=== PATIENT | female | born 1960 | race Caucasian/White ===

== ENCOUNTER → 2017-07-21 | Outpatient (CLI) | payer BC ==
--- NOTE | 2017-07-21 19:01 | XR ---
EXAMINATION TYPE: XR chest 2V DATE OF EXAM: 07/21/2017 COMPARISON: 12/04/2013 HISTORY: Cough TECHNIQUE: Frontal and lateral views of the chest are obtained. FINDINGS: There is no heart failure nor confluent pneumonic infiltrate. Costophrenic angles are trevor r. There are no hilar masses. Bony thorax is intact. IMPRESSION: No active cardiopulmonary disease. No change.
== END | disposition home or self-care (01) ==
LOC: RADXRMAIN 17:34
PROVIDERS: ATTEND Family Medicine
DX: R05 Cough (principal)
CPT/HCPCS: 71020

== ENCOUNTER 2017-12-24 10:21 | Day surgery (SDC) | payer BC ==
[2017-12-22 11:09] VITALS: BMI 31.0
[~2017-12-24 10:21] MED LIST: LACTATED RINGERS 1,000 ML IV SCH; LIDOCAINE 1% 20 ML VIAL (10MG/ML) FOR IV START INTRADERMA PRN
[2017-12-24 11:38] VITALS: TEMP 97.7
[2017-12-24] MEDS ORDERED: GLYCOPYRROLATE 0.2 MG/ML 2 ML VIAL ONE (12:05)
[2017-12-24] MEDS ORDERED: PROPOFOL 10 MG/ML 20 ML VIAL IV ONE (12:05)
--- NOTE | 2017-12-24 12:27 | P.PCN ---
Date of Procedure: 12/24/17 Procedure(s) Performed: BRIEF HISTORY: Patient is a 57-year-old pleasant white female, scheduled for an elective colonoscopy as a part of evaluation of prior history of colon polyps. Last upper endoscopy was 5 years ago. PROCEDURE PERFORMED: Colonoscopy. PREOPERATIVE DIAGNOSIS: History of colon polyps. IV sedation per Anesthesia. PROCEDURE: After informed consent was obtained, the patient, was brought into the endoscopy unit. IV sedation was administered by Anesthesia under continuous monitoring. Digital rectal examination was normal. Initially the Olympus CF- 160 flexible video colonoscope was then inserted in the rectum, gradually advanced into the cecum without any difficulty. Careful examination was performed as the scope was gradually being withdrawn. Ileocecal valve and the appendiceal orifice were visualized and appeared normal. Prep was excellent. Mucosa of the cecum, ascending colon, transverse colon, descending colon, sigmoid colon, and rectum appeared normal. Scattered sigmoid diverticulosis. Retroflexion was performed in the rectum and no lesions were seen. The patient tolerated the procedure well. IMPRESSION: Normal-appearing colon from rectum to cecum with no evidence of colorectal neoplasia . Scattered sigmoid diverticulosis RECOMMENDATIONS: Findings of this examination were discussed with the patient as well as a family. She was advised to have a repeat surveillance colonoscopy in 5 years because of the prior history of colon polyps.
[2017-12-24 12:33] VITALS: RESP 18
[2017-12-24 13:04] VITALS: BP 145/89; PULSE 65
== END 2017-12-24 13:11 | disposition home or self-care (01) ==
LOC: ORWHC2ENDO 10:21
PROVIDERS: ATTEND Internal Medicine Gastroenterology
DX: Z12.11 Encounter for screening for malignant neoplasm of colon (principal); K57.30 Diverticulosis of large intestine without perforation or abscess without bleeding; Z86.010 Personal history of colon polyps; I10 Essential (primary) hypertension; I48.91 Unspecified atrial fibrillation; E07.9 Disorder of thyroid, unspecified; F32.9 Major depressive disorder, single episode, unspecified; Z79.899 Other long term (current) drug therapy; Z79.890 Hormone replacement therapy
CPT/HCPCS: J2704; G0105; 45378

== ENCOUNTER → 2018-07-06 | Outpatient (CLI) | payer BC ==
--- NOTE | 2018-07-06 11:43 | FL ---
Barium swallow HISTORY: Dysphagia 88 intraoperative images, 1 minute 46 seconds fluoroscopy time allograft patient was given high densi ty barium to drink. The swallowing mechanism is normal. There is no obstruction to flow, no intrinsic esophageal abnormal ity. Mild degenerative disc changes noted in the cervical spine. No evident hiatal hernia. Tertiary e sophageal contractions were noted incidentally. Some poor clearance of the barium from the thoracic e sophagus is noted. No gastroesophageal reflux. IMPRESSION: Some tertiary esophageal contractions were noted as described. Some mild degenerative dis c changes in the cervical spine show minimal posterior impression on the cervical esophagus.
== END | disposition home or self-care (01) ==
LOC: RADFLWHC 09:15
PROVIDERS: ATTEND Otolaryngology
DX: K22.8 Other specified diseases of esophagus (principal)
CPT/HCPCS: 74220

== ENCOUNTER 2018-09-16 09:29 | Day surgery (SDC) | payer BC, OTHER ==
[2018-09-14 09:21] VITALS: BMI 31.0
[~2018-09-16 09:29] MED LIST changes: -LIDOCAINE 1% 20 ML VIAL (10MG/ML) FOR IV START INTRADERMA PRN
[2018-09-16] MEDS ORDERED: LIDOCAINE 1% 20 ML VIAL (10MG/ML) FOR IV START INTRADERMA ONE (10:18)
[2018-09-16] MEDS ORDERED: LACTATED RINGERS 1,000 ML IV ONE (10:18)
[2018-09-16 10:22] VITALS: RESP 18; TEMP 98.3
[2018-09-16] MEDS ORDERED: LIDOCAINE 1% INJ 10MG/ML (20 ML MDV) ONE (10:45)
[2018-09-16] MEDS ORDERED: PROPOFOL 10 MG/ML 20 ML VIAL IV ONE (10:45)
--- NOTE | 2018-09-16 11:05 | P.PCN ---
Date of Procedure: 09/16/18 Procedure(s) Performed: BRIEF HISTORY: Patient is a 58-year-old, pleasant, female, scheduled for an upper endoscopy as a part of value should of globus pharyngeus for the last 3 months duration. She reports no dysphagia or odynophagia. She denies any heartburn, abdominal pain or nausea vomiting. PROCEDURE PERFORMED: Esophagogastroduodenoscopy with biopsy. PREOPERATIVE DIAGNOSIS: Globus pharyngeal. IV sedation per anesthesia. PROCEDURE: After informed consent was obtained, the patient was brought into the endoscopy unit. IV sedation was administered by Anesthesia under continuous monitoring. Initially the Olympus GIF-140 video endoscope was inserted into the mouth. Esophagus intubated without any difficulty. It was gradually advanced into the stomach and duodenum and carefully examined. The bulb and the second part of the duodenum appeared normal. The scope at this time was withdrawn to the stomach, adequately insufflated with air, and upon careful examination, mucosa of the antrum, had mild gastritis and biopsies were done from this area. The body, cardia and the fundus appeared normal. The scope was then withdrawn into the esophagus. The GE junction was located at 39 cm from the incisors. The esophagus appeared normal. There were no erosions or ulcerations seen. Proximal cervical esophagus was carefully examined and appeared entirely normal. Biopsies were done from the distal esophagus and the patient tolerated the procedure well. IMPRESSION: 1. Antral gastritis. 2. Normal-appearing esophagus with no evidence of esophagitis or esophageal stricture.. RECOMMENDATIONS: The findings of this examination were discussed with the patient as well as a family. She was advised to follow with the biopsy results..
[2018-09-16 11:24] VITALS: BP 157/80; PULSE 58
== END 2018-09-16 11:38 | disposition home or self-care (01) ==
LOC: ORWHC2ENDO 09:29
PROVIDERS: ATTEND Internal Medicine Gastroenterology
DX: K29.50 Unspecified chronic gastritis without bleeding (principal); B96.81 Helicobacter pylori [H. pylori] as the cause of diseases classified elsewhere; F45.8 Other somatoform disorders; I48.91 Unspecified atrial fibrillation; E07.9 Disorder of thyroid, unspecified; F32.9 Major depressive disorder, single episode, unspecified; Z79.890 Hormone replacement therapy; Z79.899 Other long term (current) drug therapy
CPT/HCPCS: 88305; 88342; 43239; J2001; J2704

== ENCOUNTER 2019-02-08 12:06 | Emergency (ER) | payer OTHER ==
[2019-02-08 12:16] VITALS: TEMP 98.3
[2019-02-08 12:56] LABS: Basophils # (A) 0.1 k/uL (0-0.2); Basophils % (A) 1 %; Eosinophils # (A) 0.3 k/uL (0-0.7); Eosinophils % (A) 4 %; HCT 45.9 % (34.0-46.0); HGB 14.7 gm/dL (11.4-16.0); Lymphocytes # (A) 2.3 k/uL (1.0-4.8); Lymphocytes % (A) 34 %; MCH 27.8 pg (25.0-35.0); MCHC 31.9 g/dL (31.0-37.0); MCV 87.1 fL (80.0-100.0); Mean Platelet Volume 6.6; Monocytes # (A) 0.4 k/uL (0-1.0); Monocytes % (A) 5 %; Neutrophils # (A) 3.7 k/uL (1.3-7.7); Neutrophils % (A) 54 %; Platelet Count 315 k/uL (150-450); RBC 5.27 m/uL (3.80-5.40); RDW 13.9 % (11.5-15.5); WBC 6.9 k/uL (3.8-10.6)
--- NOTE | 2019-02-08 12:59 | XR ---
EXAMINATION TYPE: XR chest 2V DATE OF EXAM: 02/08/2019 COMPARISON: Chest x-rays from 2017 and 2014. HISTORY: Atrial fibrillation. TECHNIQUE: Frontal and lateral views of the chest are obtained. FINDINGS: There is chronic parenchymal change without suspicious focal air space opacity, pleural ef fusion, or pneumothorax seen. Focal scarring at right anterior first rib articulation is stable from 2014. The cardiac silhouette size remains within normal limits. Overlying EKG leads are now present. The osseous structures are intact. IMPRESSION: No acute cardiopulmonary process. No significant change from prior study.
[2019-02-08 13:01] LABS: Partial Thromboplastin Time 25.5 sec (22.0-30.0); Prothrombin Time 10.8 sec (9.0-12.0)
[2019-02-08] MEDS ORDERED: METOPROLOL TARTRATE 5 MG/5 ML VIAL IVP STA ×2 (13:03→14:17)
--- NOTE | 2019-02-08 13:06 | ED ---
Arrhythmia/Palpitations HPI - General Chief Complaint: Arrhythmia/Palpitations Stated Complaint: A-Fib Time Seen by Provider: 02/08/19 12:22 Source: patient, RN notes reviewed, old records reviewed Mode of arrival: wheelchair Limitations: no limitations - History of Present Illness Initial Comments: 58-year-old female history of atrial fibrillation presents with an episode of palpitations which began this morning. She denies pain associated with her palpitations. She did have an episode on Friday which was associated with some bilateral shoulder pain. She took a flecainide at that time which she is she was prescribed when necessary and this resolved her symptoms on Friday. She did not take any medication prior to arrival today. She is currently on metoprolol 25 mg daily and losartan. No anticoagulation. She reports some mild dyspnea associated with her palpitations. No cough or fever. No vomiting or diarrhea. - Related Data Home Medications Medication Instructions Recorded Confirmed Cholecalciferol [Vitamin D3] 1,000 unit PO W/SUPPER 12/22/17 02/08/19 Levothyroxine Sodium [Synthroid] 50 mcg PO DAILY 12/22/17 02/08/19 Metoprolol Succinate [Toprol XL] 25 mg PO W/SUPPER 12/22/17 02/08/19 Sertraline [Zoloft] 50 mg PO W/SUPPER 12/22/17 02/08/19 Flecainide Acetate 100 mg PO W/SUPPER PRN 02/08/19 02/08/19 Losartan Potassium 100 mg PO W/SUPPER 02/08/19 02/08/19 Previous Rx's Medication Instructions Recorded Metoprolol Tartrate [Lopressor] 25 mg PO BID #60 tablet 02/08/19 Allergies Allergy/AdvReac Type Severity Reaction Status Date / Time lorazepam [From Ativan] AdvReac Severe DOES NOT Verified 02/08/19 12:39 REMEMBER ANYTHING FOR A COUPLE HOURS. Review of Systems ROS Statement: Those systems with pertinent positive or pertinent negative responses have been documented in the HPI. ROS Other: All systems not noted in ROS Statement are negative. Past Medical History Past Medical History: Atrial Fibrillation, Cancer, Hypertension, Osteoarthritis (OA), Thyroid Disorder Additional Past Medical History / Comment(s): MIGRAINES, DDD , HX OF BREAST CANCER (2000-SURGERY & TAMOXIFEN)., STATES FRACTURE OF T-11., THYROID NODULE., STRESS INCONTINENCE., STATES SHE FEELS LIKE SHE HAS SOMETHING IN HER THROAT. History of Any Multi-Drug Resistant Organisms: None Reported Past Surgical History: Breast Surgery, Section Additional Past Surgical History / Comment(s): LUMPECTOMY X2, RIGHT BREAST DUCT REMOVED, GANGLION CYST., X2 Past Anesthesia/Blood Transfusion Reactions: No Reported Reaction Past Psychological History: Depression Smoking Status: Former smoker Past Alcohol Use History: None Reported Past Drug Use History: None Reported, Marijuana - Past Family History Mother Family Medical History: Cancer Additional Family Medical History / Comment(s): BREAST CA Father Additional Family Medical History / Comment(s): POLYCYTHEMIA Brother(s) Family Medical History: Cancer Additional Family Medical History / Comment(s): POLYP CANCER Sister(s) Family Medical History: Cancer Additional Family Medical History / Comment(s): 2 SISTERS= UTERINE CANCER General Exam Limitations: no limitations General appearance: alert, in no apparent distress Head exam: Present: atraumatic, normocephalic Eye exam: Present: normal appearance, PERRL ENT exam: Present: normal exam Neck exam: Present: normal inspection. Absent: tenderness, meningismus Respiratory exam: Present: normal lung sounds bilaterally. Absent: respiratory distress Cardiovascular Exam: Present: tachycardia, irregular rhythm GI/Abdominal exam: Present: soft. Absent: distended, tenderness, guarding Extremities exam: Present: normal inspection, normal capillary refill. Absent: pedal edema Neurological exam: Present: alert, oriented X3, CN II-XII intact. Absent: motor sensory deficit Psychiatric exam: Present: normal affect, normal mood Skin exam: Present: warm, dry, intact. Absent: cyanosis, diaphoretic Course Vital Signs 02/08/19 02/08/19 02/08/19 12:13 12:56 13:39 Temperature 98.3 F Pulse Rate 78 100 66 Respiratory 18 18 18 Rate Blood Pressure 144/86 141/94 135/66 O2 Sat by Pulse 99 98 95 Oximetry 02/08/19 14:24 Temperature Pulse Rate 101 H Respiratory 18 Rate Blood Pressure 145/102 O2 Sat by Pulse 98 Oximetry EKG Findings - EKG Comments: EKG Findings:: EK, atrial fibrillation with PVC, rate of 85, QRS duration 84, QTC 435, no ST segment elevation. EKG 1325, sinus bradycardia, rate 57, OK interval 190, QRS duration 82, QTC 399, no ST segment elevation. EK, normal sinus rhythm, rate 61, OK interval 182, QRS duration 84, QTC 418. Medical Decision Making - Medical Decision Making 58-year-old female with known history of atrial fibrillation presenting with palpitations. Patient denies any chest pain. She had a pain between her shoulder blades several days ago this has resolved. She has no known history of coronary artery disease. She follows with cardiology on a regular basis. She is currently on metoprolol, losartan, and flecainide as needed. She took her metoprolol today but did not take flecainide prior to arrival. Initial EKG is atrial fibrillation which is rate controlled. She does convert on her own to sinus rhythm and then converts again to atrial fibrillation with a rate around 100. She is given 2.5 mg of metoprolol and returns to normal sinus rhythm. She is asymptomatic. She has a normal CBC, normal CMP, normal electrolytes, and negative troponin. I did discuss possibility of observation for telemetry and cardiology consultation, she prefers outpatient follow-up. She will monitor both blood pressure and heart rate at home. She will return with worsening or changing symptoms. I did initiate metoprolol 25 mg twice daily as opposed to once daily. Patient will call her thermal molder's and follow-up as an o utpatient. - Lab Data Result diagrams: 02/08/19 12:37 02/08/19 12:37 Lab Results 02/08/19 02/08/19 02/08/19 Range/Units 12:37 12:37 12:37 WBC 6.9 (3.8-10.6) k/uL RBC 5.27 (3.80-5.40) m/uL Hgb 14.7 (11.4-16.0) gm/dL Hct 45.9 (34.0-46.0) % MCV 87.1 (80.0-100.0) fL MCH 27.8 (25.0-35.0) pg MCHC 31.9 (31.0-37.0) g/dL RDW 13.9 (11.5-15.5) % Plt Count 315 (150-450) k/uL Neutrophils % 54 % Lymphocytes % 34 % Monocytes % 5 % Eosinophils % 4 % Basophils % 1 % Neutrophils # 3.7 (1.3-7.7) k/uL Lymphocytes # 2.3 (1.0-4.8) k/uL Monocytes # 0.4 (0-1.0) k/uL Eosinophils # 0.3 (0-0.7) k/uL Basophils # 0.1 (0-0.2) k/uL PT 10.8 (9.0-12.0) sec INR 1.0 (<1.2) APTT 25.5 (22.0-30.0) sec Sodium 145 (137-145) mmol/L Potassium 3.6 (3.5-5.1) mmol/L Chloride 108 H (98-107) mmol/L Carbon Dioxide 28 (22-30) mmol/L Anion Gap 9 mmol/L BUN 14 (7-17) mg/dL Creatinine 0.86 (0.52-1.04) mg/dL Est GFR (CKD-EPI)AfAm 87 (>60 ml/min/1.73 sqM) Est GFR (CKD-EPI)NonAf 75 (>60 ml/min/1.73 sqM) Glucose 74 (74-99) mg/dL Calcium 10.0 (8.4-10.2) mg/dL Magnesium 1.9 (1.6-2.3) mg/dL Total Bilirubin 0.4 (0.2-1.3) mg/dL AST 18 (14-36) U/L ALT 10 (9-52) U/L Alkaline Phosphatase 66 (38-126) U/L Troponin I (0.000-0.034) ng/mL Total Protein 7.7 (6.3-8.2) g/dL Albumin 4.7 (3.5-5.0) g/dL 02/08/19 Range/Units 12:37 WBC (3.8-10.6) k/uL RBC (3.80-5.40) m/uL Hgb (11.4-16.0) gm/dL Hct (34.0-46.0) % MCV (80.0-100.0) fL MCH (25.0-35.0) pg MCHC (31.0-37.0) g/dL RDW (11.5-15.5) % Plt Count (150-450) k/uL Neutrophils % % Lymphocytes % % Monocytes % % Eosinophils % % Basophils % % Neutrophils # (1.3-7.7) k/uL Lymphocytes # (1.0-4.8) k/uL Monocytes # (0-1.0) k/uL Eosinophils # (0-0.7) k/uL Basophils # (0-0.2) k/uL PT (9.0-12.0) sec INR (<1.2) APTT (22.0-30.0) sec Sodium (137-145) mmol/L Potassium (3.5-5.1) mmol/L Chloride (98-107) mmol/L Carbon Dioxide (22-30) mmol/L Anion Gap mmol/L BUN (7-17) mg/dL Creatinine (0.52-1.04) mg/dL Est GFR (CKD-EPI)AfAm (>60 ml/min/1.73 sqM) Est GFR (CKD-EPI)NonAf (>60 ml/min/1.73 sqM) Glucose (74-99) mg/dL Calcium (8.4-10.2) mg/dL Magnesium (1.6-2.3) mg/dL Total Bilirubin (0.2-1.3) mg/dL AST (14-36) U/L ALT (9-52) U/L Alkaline Phosphatase (38-126) U/L Troponin I <0.012 (0.000-0.034) ng/mL Total Protein (6.3-8.2) g/dL Albumin (3.5-5.0) g/dL Disposition Clinical Impression: Atrial fibrillation Disposition: HOME SELF-CARE Condition: Good Instructions (If sedation given, give patient instructions): Heart Palpitations (ED), A-fib (Atrial Fibrillation) (ED) Prescriptions: Metoprolol Tartrate [Lopressor] 25 mg PO BID #60 tablet Is patient prescribed a controlled substance at d/c from ED?: No Referrals: Bryan Walter DO [Primary Care Provider] - 1-2 days Armond Anthony MD [STAFF PHYSICIAN] - 1-2 days Time of Disposition: 15:02
[2019-02-08 13:10] LABS: Albumin 4.7 g/dL (3.5-5.0); Magnesium 1.9 mg/dL (1.6-2.3); Potassium 3.6 mmol/L (3.5-5.1); Total Bilirubin 0.4 mg/dL (0.2-1.3); Total Protein 7.7 g/dL (6.3-8.2)
[2019-02-08 15:21] VITALS: BP 160/86; PULSE 58; RESP 16
== END 2019-02-08 15:29 | disposition home or self-care (01) ==
LOC: EC 12:06
DX: I48.91 Unspecified atrial fibrillation (principal); R00.0 Tachycardia, unspecified; R00.2 Palpitations; R06.00 Dyspnea, unspecified; I10 Essential (primary) hypertension; E07.9 Disorder of thyroid, unspecified; F32.9 Major depressive disorder, single episode, unspecified; Z87.891 Personal history of nicotine dependence; Z79.899 Other long term (current) drug therapy; Z88.8 Allergy status to other drugs, medicaments and biological substances; Z85.3 Personal history of malignant neoplasm of breast
CPT/HCPCS: 36415; 71046; 80053; 83735; 84484; 85025; 85610; 85730; 93005; 96374; 99284

== ENCOUNTER 2019-06-30 14:40 | Observation (INO) | payer OTHER ==
[2019-06-30] MEDS ORDERED: ASPIRIN 81 MG PO STA (16:27)
[2019-06-30] MEDS ORDERED: SODIUM CHLORIDE 0.9% 1,000 ML IV STA ×2 (16:27)
[2019-06-30 16:56] LABS: Basophils # (A) 0.1 k/uL (0-0.2); Basophils % (A) 1 %; Eosinophils # (A) 0.3 k/uL (0-0.7); Eosinophils % (A) 4 %; HCT 46.2 % (34.0-46.0); HGB 14.6 gm/dL (11.4-16.0); Lymphocytes # (A) 2.4 k/uL (1.0-4.8); Lymphocytes % (A) 38 %; MCH 27.9 pg (25.0-35.0); MCHC 31.7 g/dL (31.0-37.0); MCV 88.1 fL (80.0-100.0); Mean Platelet Volume 6.4; Monocytes # (A) 0.3 k/uL (0-1.0); Monocytes % (A) 5 %; Neutrophils # (A) 3.1 k/uL (1.3-7.7); Neutrophils % (A) 49 %; Platelet Count 286 k/uL (150-450); RBC 5.24 m/uL (3.80-5.40); RDW 13.2 % (11.5-15.5); WBC 6.4 k/uL (3.8-10.6)
[2019-06-30 17:05] LABS: Albumin 4.4 g/dL (3.5-5.0); Calcium 9.4 mg/dL (8.4-10.2); Potassium 4.1 mmol/L (3.5-5.1); Total Bilirubin 0.7 mg/dL (0.2-1.3); Total Protein 7.4 g/dL (6.3-8.2)
[2019-06-30 17:08] LABS: INR 1.1 (<1.2); Partial Thromboplastin Time 30.5 sec (22.0-30.0); Prothrombin Time 11.4 sec (9.0-12.0)
--- NOTE | 2019-06-30 17:16 | ED ---
Arrhythmia/Palpitations HPI - General Chief Complaint: Arrhythmia/Palpitations Stated Complaint: A Fib Time Seen by Provider: 06/30/19 16:05 Source: patient, RN notes reviewed, old records reviewed Mode of arrival: ambulatory Limitations: no limitations - History of Present Illness Initial Comments: Patient's a 59-year-old female, who presents emergency department today for evaluation for concern for palpitations and irregular heartbeat. She reports that she can feel and her heart goes into her arrhythmias, A. fib. Patient reports when this occurs her commercial designer Dr. Temple has told her to take a second dose of flecainide and metoprolol. She reports that she could feel her heart surgery" palpitations today at 9 AM, took a double dose of his medications. She reports that she waited 6 hours, and continued to feel that she was in A. fib. She does complain of some mild chest discomfort at this time. Patient states that she felt herself converted to sinus rhythm upon giving to the emergency room. She attempted to call her commercial designer but was not successful in contacting them earlier today as they did not return her calls. - Related Data Home Medications Medication Instructions Recorded Confirmed Cholecalciferol [Vitamin D3] 1,000 unit PO TU 12/22/17 06/30/19 Levothyroxine Sodium [Synthroid] 50 mcg PO DAILY 12/22/17 06/30/19 Metoprolol Succinate [Toprol XL] 25 mg PO DAILY 12/22/17 06/30/19 Losartan Potassium 150 mg PO DAILY 02/08/19 06/30/19 Apixaban [Eliquis] 5 mg PO Q12H 06/30/19 06/30/19 Flecainide [Tambocor] 50 mg PO Q12HR 06/30/19 06/30/19 Allergies Allergy/AdvReac Type Severity Reaction Status Date / Time lorazepam [From Ativan] AdvReac Severe DOES NOT Verified 06/30/19 17:08 REMEMBER ANYTHING FOR A COUPLE HOURS. Review of Systems ROS Statement: Those systems with pertinent positive or pertinent negative responses have been documented in the HPI. ROS Other: All systems not noted in ROS Statement are negative. Past Medical History Past Medical History: Atrial Fibrillation, Cancer, Hypertension, Osteoarthritis (OA), Thyroid Disorder Additional Past Medical History / Comment(s): MIGRAINES, DDD , HX OF BREAST CANCER (2001-SURGERY & TAMOXIFEN)., STATES FRACTURE OF T-11., THYROID NODULE., STRESS INCONTINENCE., STATES SHE FEELS LIKE SHE HAS SOMETHING IN HER THROAT. History of Any Multi-Drug Resistant Organisms: None Reported Past Surgical History: Breast Surgery, Section Additional Past Surgical History / Comment(s): LUMPECTOMY X2, RIGHT BREAST DUCT REMOVED, GANGLION CYST., X2 Past Anesthesia/Blood Transfusion Reactions: No Reported Reaction Past Psychological History: Depression Smoking Status: Former smoker Past Alcohol Use History: None Reported Past Drug Use History: None Reported - Past Family History Mother Family Medical History: Cancer Additional Family Medical History / Comment(s): BREAST CA Father Additional Family Medical History / Comment(s): POLYCYTHEMIA Brother(s) Family Medical History: Cancer Additional Family Medical History / Comment(s): POLYP CANCER Sister(s) Family Medical History: Cancer Additional Family Medical History / Comment(s): 2 SISTERS= UTERINE CANCER General Exam - General Exam Comments Initial Comments: Pleasant 59-year-old female. Patient appears in no significant distress. Limitations: no limitations General appearance: alert, in no apparent distress Head exam: Present: atraumatic, normocephalic, normal inspection Eye exam: Present: normal appearance, PERRL, EOMI. Absent: scleral icterus, co njunctival injection, periorbital swelling ENT exam: Present: normal exam Neck exam: Present: normal inspection. Absent: tenderness, meningismus, lym phadenopathy Respiratory exam: Present: normal lung sounds bilaterally Cardiovascular Exam: Present: regular rate, normal rhythm, normal heart sounds. Absent: systolic murmur, diastolic murmur, rubs, gallop, clicks GI/Abdominal exam: Present: soft, normal bowel sounds. Absent: distended, tenderness, guarding, rebound, rigid Back exam: Present: normal inspection Neurological exam: Present: alert, oriented X3, CN II-XII intact Psychiatric exam: Present: normal affect, normal mood Course Vital Signs 06/30/19 15:07 Temperature 97.8 F Pulse Rate 45 L Respiratory 16 Rate Blood Pressure 155/77 O2 Sat by Pulse 100 Oximetry - Reevaluation(s) Reevaluation #1: 06/30/19 17:16 Patient is continued complaints of chest pressure at this time. She is in normal sinus rhythm with a low heart rate of 49 bpm. Reevaluation #2: 06/30/19 17:50 Reports progressive chest pain, EKG now shows sinus bradycardia first-degree block, abnormal EKG but no T-wave inversions at this time. Ventricular rate of 43 bpm. Goals 210 ms. Respirations 80 ms. QT QTc is 478/403 ms. EKG Findings - EKG Comments: EKG Findings:: EKG shows marked sinus bradycardia, cannot rule anterior infarct. Ventricular rate of 44 bpm. Normal is 204 ms. QS duration is 86 most seconds. QT QTc is 472/403 ms. Medical Decision Making - Medical Decision Making -year-old female with history of A. fib, presents today for concerns for continued feeling of atrial fibrillation despite taking multiple doses of her flecainide Amitril blood today. She rates the emergency department today complaining of some chest discomfort but has converted to sinus rhythm upon arriving to the ER. Patient initial troponin and blood work was reviewed and unremarkable. She continues to complain of some chest pressure. I discussed with her the concern of chest pressure, and episodes of A. fib and arrhythmias discussed we can admit the Patient for cardiac evaluation. She states that her commercial designer Dr. Anthony had questioned of doing a cardiac ablation for that her with this persistent A. fib. is agreeable to admission and family is aware treatment plan. - Lab Data Result diagrams: 06/30/19 16:11 06/30/19 16:11 Lab Results 06/30/19 06/30/19 06/30/19 Range/Units 16:11 16:11 16:11 WBC 6.4 (3.8-10.6) k/uL RBC 5.24 (3.80-5.40) m/uL Hgb 14.6 (11.4-16.0) gm/dL Hct 46.2 H (34.0-46.0) % MCV 88.1 (80.0-100.0) fL MCH 27.9 (25.0-35.0) pg MCHC 31.7 (31.0-37.0) g/dL RDW 13.2 (11.5-15.5) % Plt Count 286 (150-450) k/uL Neutrophils % 49 % Lymphocytes % 38 % Monocytes % 5 % Eosinophils % 4 % Basophils % 1 % Neutrophils # 3.1 (1.3-7.7) k/uL Lymphocytes # 2.4 (1.0-4.8) k/uL Monocytes # 0.3 (0-1.0) k/uL Eosinophils # 0.3 (0-0.7) k/uL Basophils # 0.1 (0-0.2) k/uL PT 11.4 (9.0-12.0) sec INR 1.1 (<1.2) APTT 30.5 H (22.0-30.0) sec Sodium 140 (137-145) mmol/L Potassium 4.1 (3.5-5.1) mmol/L Chloride 108 H (98-107) mmol/L Carbon Dioxide 26 (22-30) mmol/L Anion Gap 6 mmol/L BUN 9 (7-17) mg/dL Creatinine 0.85 (0.52-1.04) mg/dL Est GFR (CKD-EPI)AfAm 87 (>60 ml/min/1.73 sqM) Est GFR (CKD-EPI)NonAf 76 (>60 ml/min/1.73 sqM) Glucose 87 (74-99) mg/dL Calcium 9.4 (8.4-10.2) mg/dL Magnesium 2.0 (1.6-2.3) mg/dL Total Bilirubin 0.7 (0.2-1.3) mg/dL AST 21 (14-36) U/L ALT 20 (9-52) U/L Alkaline Phosphatase 62 (38-126) U/L Troponin I (0.000-0.034) ng/mL Total Protein 7.4 (6.3-8.2) g/dL Albumin 4.4 (3.5-5.0) g/dL TSH 2.680 (0.465-4.680) mIU/L Urine Color Urine Appearance (Clear) Urine pH (5.0-8.0) Ur Specific Roulette (1.001-1.035) Urine Protein (Negative) Urine Glucose (UA) (Negative) Urine Ketones (Negative) Urine Blood (Negative) Urine Nitrite (Negative) Urine Bilirubin (Negative) Urine Urobilinogen (<2.0) mg/dL Ur Leukocyte Esterase (Negative) Urine RBC (0-5) /hpf Urine WBC (0-5) /hpf Ur Squamous Epith Cells (0-4) /hpf 06/30/19 06/30/19 Range/Units 16:11 Unknown WBC (3.8-10.6) k/uL RBC (3.80-5.40) m/uL Hgb (11.4-16.0) gm/dL Hct (34.0-46.0) % MCV (80.0-100.0) fL MCH (25.0-35.0) pg MCHC (31.0-37.0) g/dL RDW (11.5-15.5) % Plt Count (150-450) k/uL Neutrophils % % Lymphocytes % % Monocytes % % Eosinophils % % Basophils % % Neutrophils # (1.3-7.7) k/uL Lymphocytes # (1.0-4.8) k/uL Monocytes # (0-1.0) k/uL Eosinophils # (0-0.7) k/uL Basophils # (0-0.2) k/uL PT (9.0-12.0) sec INR (<1.2) APTT (22.0-30.0) sec Sodium (137-145) mmol/L Potassium (3.5-5.1) mmol/L Chloride (98-107) mmol/L Carbon Dioxide (22-30) mmol/L Anion Gap mmol/L BUN (7-17) mg/dL Creatinine (0.52-1.04) mg/dL Est GFR (CKD-EPI)AfAm (>60 ml/min/1.73 sqM) Est GFR (CKD-EPI)NonAf (>60 ml/min/1.73 sqM) Glucose (74-99) mg/dL Calcium (8.4-10.2) mg/dL Magnesium (1.6-2.3) mg/dL Total Bilirubin (0.2-1.3) mg/dL AST (14-36) U/L ALT (9-52) U/L Alkaline Phosphatase (38-126) U/L Troponin I <0.012 (0.000-0.034) ng/mL Total Protein (6.3-8.2) g/dL Albumin (3.5-5.0) g/dL TSH (0.465-4.680) mIU/L Urine Color Light Yellow Urine Appearance Clear (Clear) Urine pH 6.0 (5.0-8.0) Ur Specific Roulette 1.007 (1.001-1.035) Urine Protein Negative (Negative) Urine Glucose (UA) Negative (Negative) Urine Ketones Negative (Negative) Urine Blood Trace H (Negative) Urine Nitrite Negative (Negative) Urine Bilirubin Negative (Negative) Urine Urobilinogen <2.0 (<2.0) mg/dL Ur Leukocyte Esterase Moderate H (Negative) Urine RBC 1 (0-5) /hpf Urine WBC 9 H (0-5) /hpf Ur Squamous Epith Cells 2 (0-4) /hpf - Radiology Data Radiology results: report reviewed Chest x-ray is negative for any acute cardiopulmonary process. Disposition Clinical Impression: Paroxysmal A-fib, Chest pain Disposition: ADMITTED IP TO THIS HOSP Condition: Stable Is patient prescribed a controlled substance at d/c from ED?: No Referrals: Bryan Walter DO [Primary Care Provider] - 1-2 days Time of Disposition: 18:03
--- NOTE | 2019-06-30 17:32 | XR ---
EXAMINATION TYPE: XR chest 2V DATE OF EXAM: 06/30/2019 COMPARISON: 02/08/2019 INDICATION: Dysrhythmia TECHNIQUE: Frontal and lateral views of the chest are obtained. FINDINGS: The heart size is normal. The pulmonary vasculature is normal. The lungs are clear. IMPRESSION: 1. No acute pulmonary process.
[2019-06-30 17:42] LABS: Appearance,Urine Clear (Clear); Bilirubin,Urine Negative (Negative); Blood,Urine Trace (Negative); Color,Urine Light Yellow; Glucose,Urine (UA) Negative (Negative); Ketones,Urine Negative (Negative); Leukocyte Esterase,Urine Moderate (Negative); Nitrite,Urine Negative (Negative); Protein,Urine Negative (Negative); RBC,Urine 1 /hpf (0-5); Specific Gravity,Urine 1.007 (1.001-1.035); Squamous Epithelial Cell,Urine 2 /hpf (0-4); Urobilinogen,Urine <2.0 mg/dL (<2.0); WBC,Urine 9 /hpf (0-5)
[2019-06-30] MEDS ORDERED: NITROGLYCERIN SL TABS 0.4 MG TAB SUBLINGUAL PRN (18:04)
[2019-06-30] MEDS: APIXABAN 5 MG TAB PO SCH (20:41)
[2019-06-30] MEDS ORDERED: FLECAINIDE 50 MG TAB PO SCH (21:00)
[2019-07-01 00:30] VITALS: RESP 18
[2019-07-01 06:17] LABS: Cholesterol 153 mg/dL (<200); HDL Cholesterol 46 mg/dL (40-60); LDL Cholesterol,Calculated 89 mg/dL (0-99); Triglycerides 88 mg/dL (<150)
[2019-07-01] MEDS ORDERED: LEVOTHYROXINE 50 MCG TAB PO SCH (06:30)
[2019-07-01] MEDS ORDERED: ASPIRIN 325 MG TAB PO SCH (09:00)
[2019-07-01] MEDS ORDERED: LOSARTAN 50 MG TAB PO SCH (09:00)
[2019-07-01] MEDS ORDERED: FLECAINIDE 50 MG TAB PO SCH (09:00)
[2019-07-01] MEDS ORDERED: METOPROLOL SUCCINATE (ER) 25 MG TAB.ER.24H PO SCH (09:00)
[2019-07-01] MEDS ORDERED: CHOLECALCIFEROL 1,000 UNIT TAB PO SCH (09:00)
[2019-07-01] MEDS: APIXABAN 5 MG TAB PO SCH (09:49)
--- NOTE | 2019-07-01 10:30 | P.CRDCN ---
History of Present Illness History of present illness: This is a pleasant 59-year-old female past medical history significant for paroxysmal atrial fibrillation on long-term anticoagulation, hypothyroidism, hypertension, depression and history of breast cancer in 2000. She follows in the office with Dr. Ayoub. We have been asked to see her in consultation secondary to atrial fibrillation. The patient states over the previous 6 weeks she has noticed an increase in incidence of palpitations. She was initially diagnosed with atrial fibrillation in 2013 and remained mostly in sinus mechanism. She had a prescription for when necessary flecainide that she was advised to take as needed when she felt palpitations or atrial fibrillation symptoms. She states over the course of the initial few years she only took that medication very infrequently however over the previous 6 weeks she has noticed she has been taking it much more regularly at least 2-3 times per week. She followed up with Dr. Ayoub in the office in 2 weeks ago she started taking flecainide 50 mg by mouth twice a day scheduled. Even on this dose and rayray quency she continues to have episodes of very symptomatic palpitations. She states yesterday morning she woke up in the morning feeling her normal self however shortly thereafter she started feeling significant palpitations, chest discomfort, dizziness and shortness of breath. She took her flecainide as scheduled however her symptoms persisted. She came to the emergency department and states she was feeling palpitations when she arrived at the hospital. EKGs 2 both reveal sinus bradycardia telemetry tracings reveal persistent sinus bradycardia. There is no evidence of atrial fibrillation on telemetry. Chest x-ray is negative for an acute cardiopulmonary process. Laboratory data revie wed, WBC 6.4, hemoglobin 14.6, platelets 286, sodium 140, potassium 4.1, creatinine 0.85, magnesium 2.0, cardiac enzymes negative 3, LDL 89, HDL 46, total cholesterol 153, TSH 2.68. Current daily cardiac medications include flecainide 50 mg by mouth twice a day, and Eliquis 5 mg twice a day, losartan 150 mg daily and Toprol 25 mg daily. She underwent stress test in the office in February 2019 revealing no evidence of stress-induced ischemia. Recent echocardiogram revealed preserved LV systolic function with no wall motion abnormality. At the time of my exam: CONSTITUTIONAL: Denies fever. Denies chills. EYES: Denies blurred vision. Denies vision changes. Denies eye pain. EARS, NOSE, MOUTH & THROAT: Denies headache. Denies sore throat. Denies ear pain. CARDIOVASCULAR: Denies chest pain. Denies shortness of breath. Denies orthopnea. Denies PND. Denies palpitations. RESPIRATORY: Denies cough. GASTROINTESTINAL: Denies abdominal pain. Denies diarrhea. Denies constipation. Denies nausea. Denies vomiting. MUSCULOSKELETAL: Denies myalgias. INTEGUMENTARY: Denies pruitis. Denies rash. NEUROLOGIC: Denies numbness. Denies tingling. Denies weakness. PSYCHIATRIC: Denies anxiety. Denies depression. ENDOCRINE: Denies fatigue. Denies weight change. Denies polydipsia. Denies polyurina. GENITOURINARY: Denies burning, hematuria or urgency with micturation. HEMATOLOGIC: Denies history of anemia. Denies bleeding. Blood pressure 144/78 heart rate 53 afebrile and maintaining oxygen saturation on room air GENERAL: This is a 59-year-old female in no apparent distress at the time of my examination. HEENT: Head is atraumatic, normocephalic. Pupils are equal, round. Sclerae anicteric. Conjunctivae are clear. Mucous membranes of the mouth are moist. Neck is supple. There is no jugular venous distention. No carotid bruit is heard. LUNGS: Clear to auscultation no wheezes, rales or rhonchi. No chest wall tenderness is noted on palpation or with deep breathing. HEART: Regular rate and rhythm without murmurs, rubs or gallops. S1 and S2 heard. ABDOMEN: Soft, nontender. Bowel sounds are heard. No organomegaly noted. EXTREMITIES: No evidence of peripheral edema and no calf tenderness noted. VASCULAR: Radial and dorsalis pedis pulses palpated, no evidence of clubbing. NEUROLOGIC: Patient is awake, alert and oriented x3. ASSESSMENT Paroxysmal atrial fibrillation on long-term anticoagulation Hypertension Hypothyroidism Depression History of breast cancer PLAN Increase flecanide to 100 mg BID. She last saw Dr. Anthony in the office 06/25 and wore an outpatient monitor at that time. There was discussion regarding the need for a possible ablation if she continued to have breakthrough a-fib on maximally tolerated flecanide. Recommend increasing the flecanide and see Dr. Anthony in the office for ongoing outpatient monitoring. Thank you kindly for this consultation. Nurse Practitioner note has been reviewed, I agree with a documented findings and plan of care. Patient was seen and examined. Past Medical History Past Medical History: Atrial Fibrillation, Cancer, Hypertension, Osteoarthritis (OA), Thyroid Disorder Additional Past Medical History / Comment(s): MIGRAINES, DDD , HX OF BREAST CANCER (2000-SURGERY & TAMOXIFEN)., STATES FRACTURE OF T-11., THYROID NODULE., STRESS INCONTINENCE., History of Any Multi-Drug Resistant Organisms: None Reported Past Surgical History: Breast Surgery, Section Additional Past Surgical History / Comment(s): LUMPECTOMY X2, RIGHT BREAST DUCT REMOVED, GANGLION CYST., X2 Past Anesthesia/Blood Transfusion Reactions: No Reported Reaction Past Psychological History: No Psychological Hx Reported Additional Psychological History / Comment(s): USES SERTRALINE FOR HOT FLASHES. Smoking Status: Former smoker Past Alcohol Use History: None Reported Past Drug Use History: None Reported - Past Family History Mother Family Medical History: Cancer Additional Family Medical History / Comment(s): BREAST CA Father Additional Family Medical History / Comment(s): POLYCYTHEMIA Brother(s) Family Medical History: Cancer Additional Family Medical History / Comment(s): POLYP CANCER Sister(s) Family Medical History: Cancer Additional Family Medical History / Comment(s): 2 SISTERS= UTERINE CANCER Medications and Allergies Home Medications Medication Instructions Recorded Confirmed Type Cholecalciferol [Vitamin D3] 1,000 unit PO DAILY 12/22/17 06/30/19 History Levothyroxine Sodium [Synthroid] 50 mcg PO DAILY 12/22/17 06/30/19 History Metoprolol Succinate [Toprol XL] 25 mg PO DAILY 12/22/17 06/30/19 History Losartan Potassium 150 mg PO DAILY 02/08/19 06/30/19 History Apixaban [Eliquis] 5 mg PO Q12H 06/30/19 06/30/19 History Flecainide [Tambocor] 50 mg PO Q12HR 06/30/19 06/30/19 History Sertraline [Zoloft] 50 mg PO DAILY 06/30/19 06/30/19 History Allergies Allergy/AdvReac Type Severity Reaction Status Date / Time lorazepam [From Ativan] AdvReac Severe DOES NOT Verified 06/30/19 20:05 REMEMBER ANYTHING FOR A COUPLE HOURS. Physical Exam Vitals: Vital Signs Temp Pulse Pulse Resp BP BP BP 07/01/19 08:00 53 L 18 07/01/19 07:15 97.8 F 53 L 18 144/78 07/01/19 04:00 98.2 F 57 L 18 152/85 07/01/19 00:00 97.5 F L 51 L 18 124/72 06/30/19 19:35 97.9 F 51 L 17 165/84 06/30/19 19:05 59 L 18 140/71 06/30/19 15:07 97.8 F 45 L 16 155/77 Pulse Ox 07/01/19 08:00 07/01/19 07:15 98 07/01/19 04:00 96 07/01/19 00:00 97 06/30/19 19:35 100 06/30/19 19:05 98 06/30/19 15:07 100 Intake and Output 06/30/19 07/01/19 07/01/19 22:59 06:59 14:59 Other: Voiding Method Toilet Toilet Toilet # Voids 1 Weight 87.09 kg Results 06/30/19 16:11 06/30/19 16:11 Cardiac Enzymes 06/30/19 06/30/19 06/30/19 Range/Units 16:11 16:11 22:30 AST 21 (14-36) U/L Troponin I <0.012 <0.012 (0.000-0.034) ng/mL 07/01/19 Range/Units 04:56 AST (14-36) U/L Troponin I <0.012 (0.000-0.034) ng/mL Coagulation 06/30/19 Range/Units 16:11 PT 11.4 (9.0-12.0) sec APTT 30.5 H (22.0-30.0) sec Lipids 07/01/19 Range/Units 04:56 Triglycerides 88 (<150) mg/dL Cholesterol 153 (<200) mg/dL HDL Cholesterol 46 (40-60) mg/dL CBC 06/30/19 Range/Units 16:11 WBC 6.4 (3.8-10.6) k/uL RBC 5.24 (3.80-5.40) m/uL Hgb 14.6 (11.4-16.0) gm/dL Hct 46.2 H (34.0-46.0) % Plt Count 286 (150-450) k/uL Comprehensive Metabolic Panel 06/30/19 Range/Units 16:11 Sodium 140 (137-145) mmol/L Potassium 4.1 (3.5-5.1) mmol/L Chloride 108 H (98-107) mmol/L Carbon Dioxide 26 (22-30) mmol/L BUN 9 (7-17) mg/dL Creatinine 0.85 (0.52-1.04) mg/dL Glucose 87 (74-99) mg/dL Calcium 9.4 (8.4-10.2) mg/dL AST 21 (14-36) U/L ALT 20 (9-52) U/L Alkaline Phosphatase 62 (38-126) U/L Total Protein 7.4 (6.3-8.2) g/dL Albumin 4.4 (3.5-5.0) g/dL Current Medications Generic Name Dose Route Start Last Admin Trade Name [place] PRN Reason Stop Dose Admin Apixaban 5 mg 06/30/19 21:00 07/01/19 09:49 Eliquis PO 5 mg Q12H NADEEM Administration Cholecalciferol 1,000 unit 07/01/19 09:00 07/01/19 09:50 Vitamin D3 (25 Mcg = 1000 Iu) PO 1,000 unit DAILY NADEEM Administration Flecainide Acetate 100 mg 07/01/19 09:00 07/01/19 09:50 Tambocor PO 100 mg Q12HR NADEEM Administration Levothyroxine Sodium 50 mcg 07/01/19 06:30 07/01/19 06:41 Synthroid PO 50 mcg DAILY@0630 NADEEM Administration Losartan Potassium 150 mg 07/01/19 09:00 07/01/19 09:49 Cozaar PO 150 mg DAILY NADEEM Administration Nitroglycerin 0.4 mg 06/30/19 18:04 Nitrostat SUBLINGUAL Q5M PRN Chest Pain Intake and Output 06/30/19 07/01/19 07/01/19 22:59 06:59 14:59 Other: Voiding Method Toilet Toilet Toilet # Voids 1 Weight 87.09 kg 06/30/19 16:11 06/30/19 16:11
[2019-07-01 11:34] VITALS: BP 148/77; PULSE 50; TEMP 98.1
--- NOTE | 2019-07-01 21:31 | P.HPIM ---
History of Present Illness H&P Date: 07/01/19 Chief Complaint: Palpitation History of presenting complaint: This is a very pleasant 59-year-old patient of Dr. Walter. Patient also follows with stock control clerk Dr. ISAAC Anthony. Chronic stable medical conditions include urinary stress incontinence, thyroid nodules, stress fracture of T11, migraines, hypothyroid, osteoarthritis, hypertension. Patient has known atrial fibrillation. Has been on flecainide 50 mg twice a day. Patient presented with severe palpitations and she became uncomfortable. Last for a few hours. Was not short of breath, no dizziness not chest pressure. Presented to the ER. No fever no chills. Cardiology was consulted. In the ER was found to be in sinus bradycardia. Review of systems: GEN.: None EYES: None HEENT: None NECK: None RESPIRATORY: None CARDIOVASCULAR: As above GASTROINTESTINAL: None GENITOURINARY: None MUSCULOSKELETAL: Joint pains LYMPHATICS: None HEMATOLOGICAL: None PSYCHIATRY: None NEUROLOGICAL: None Social history: . She and her has a business off [employer], no smoking, no alcohol Physical examination: VITAL SIGNS: 97.8, 45, 16, 155/67, 100% room air GENERAL: BMI 31, sitting up in bed not in distress. EYES: Pupils equal. Conjunctiva normal. HEENT: External appearance of nose and ears normal, oral cavity grossly normal. NECK: JVD not raised; masses not palpable. HEART: First and second heart sounds are normal; no edema. LUNGS: Respiratory rate normal; clear to auscultation. ABDOMEN: Soft, nontender, liver spleen not palpable, no masses palpable. PSYCH: Alert and oriented x3; mood and affect normal. NEUROLOGICAL: Cranial nerves grossly intact; no facial asymmetry, power and sensation grossly intact. LYMPHATICS: No lymph nodes palpable in the axilla and neck INVESTIGATIONS, reviewed in the clinical context: White count 6.4 hemoglobin 14.6 potassium 4.1 creatinine 0.85 Troponin I 3 negative TSH normal LDL 89 EKG tracing-sinus bradycardia Chest x-ray film personally reviewed by me-negative Assessment: -Episodes of severe palpitations in a patient with known atrial fibrillation currently in sinus rhythm. -Chronic urinary stress incontinence -Hypothyroid -Primary osteoarthritis -Essential hypertension -Sinus bradycardia Plan: -Cardiology was consulted. Home medications are renewed. He also consulted Dr. Anthony from EP. Patient is put on telemetry. Past Medical History Past Medical History: Atrial Fibrillation, Cancer, Hypertension, Osteoarthritis (OA), Thyroid Disorder Additional Past Medical History / Comment(s): MIGRAINES, DDD , HX OF BREAST CANCER (2000-SURGERY & TAMOXIFEN)., STATES FRACTURE OF T-11., THYROID NODULE., STRESS INCONTINENCE., History of Any Multi-Drug Resistant Organisms: None Reported Past Surgical History: Breast Surgery, Section Additional Past Surgical History / Comment(s): LUMPECTOMY X2, RIGHT BREAST DUCT REMOVED, GANGLION CYST., X2 Past Anesthesia/Blood Transfusion Reactions: No Reported Reaction Past Psychological History: No Psychological Hx Reported Additional Psychological History / Comment(s): USES SERTRALINE FOR HOT FLASHES. Smoking Status: Former smoker Past Alcohol Use History: None Reported Past Drug Use History: None Reported - Past Family History Mother Family Medical History: Cancer Additional Family Medical History / Comment(s): BREAST CA Father Additional Family Medical History / Comment(s): POLYCYTHEMIA Brother(s) Family Medical History: Cancer Additional Family Medical History / Comment(s): POLYP CANCER Sister(s) Family Medical History: Cancer Additional Family Medical History / Comment(s): 2 SISTERS= UTERINE CANCER Medications and Allergies Home Medications Medication Instructions Recorded Confirmed Type Cholecalciferol [Vitamin D3 (25 1,000 unit PO DAILY 12/22/17 06/30/19 History Mcg = 1000 Iu)] Levothyroxine Sodium [Synthroid] 50 mcg PO DAILY 12/22/17 06/30/19 History Metoprolol Succinate [Toprol XL] 25 mg PO DAILY 12/22/17 06/30/19 History Losartan Potassium 150 mg PO DAILY 02/08/19 06/30/19 History Apixaban [Eliquis] 5 mg PO Q12H 06/30/19 06/30/19 History Sertraline [Zoloft] 50 mg PO DAILY 06/30/19 06/30/19 History Flecainide [Tambocor] 50 mg PO Q8H #0 07/01/19 06/30/19 Rx Allergies Allergy/AdvReac Type Severity Reaction Status Date / Time lorazepam [From Ativan] AdvReac Severe DOES NOT Verified 06/30/19 20:05 REMEMBER ANYTHING FOR A COUPLE HOURS. Physical Exam Vitals: Vital Signs Temp Pulse Pulse Resp BP BP BP 07/01/19 08:00 53 L 18 07/01/19 07:15 97.8 F 53 L 18 144/78 07/01/19 04:00 98.2 F 57 L 18 152/85 07/01/19 00:00 97.5 F L 51 L 18 124/72 06/30/19 19:35 97.9 F 51 L 17 165/84 06/30/19 19:05 59 L 18 140/71 06/30/19 15:07 97.8 F 45 L 16 155/77 Pulse Ox 07/01/19 08:00 07/01/19 07:15 98 07/01/19 04:00 96 07/01/19 00:00 97 06/30/19 19:35 100 06/30/19 19:05 98 06/30/19 15:07 100 Intake and Output 06/30/19 07/01/19 07/01/19 22:59 06:59 14:59 Other: Voiding Method Toilet Toilet Toilet # Voids 1 Weight 87.09 kg Results CBC & Chem 7: 06/30/19 16:11 06/30/19 16:11 Labs: Abnormal Lab Results - Last 24 Hours (Table) 06/30/19 06/30/19 06/30/19 Range/Units 16:11 16:11 16:11 Hct 46.2 H (34.0-46.0) % APTT 30.5 H (22.0-30.0) sec Chloride 108 H (98-107) mmol/L Urine Blood (Negative) Ur Leukocyte Esterase (Negative) Urine WBC (0-5) /hpf 06/30/19 Range/Units Unknown Hct (34.0-46.0) % APTT (22.0-30.0) sec Chloride (98-107) mmol/L Urine Blood Trace H (Negative) Ur Leukocyte Esterase Moderate H (Negative) Urine WBC 9 H (0-5) /hpf Thrombosis Risk Factor Assmnt - Choose All That Apply Any of the Below Risk Factors Present?: Yes Each Factor Represents 1 point: Age 41-60 years, Obesity (BMI >25), Varicose v eins Other Risk Factors: Yes Each Risk Factor Represents 3 Points: Family history of DVT/PE Other congenital or acquired thrombophilia - If yes, enter type in comment: No Thrombosis Risk Factor Assessment Total Risk Factor Score: 6 Thrombosis Risk Factor Assessment Level: High Risk
--- NOTE | 2019-07-01 21:34 | P.DS ---
Providers Date of admission: 06/30/19 18:37 Expected date of discharge: 07/01/19 Attending physician: Guillermo Cheema Consults: 06/30/19 18:04 Consult Physician Urgent Consulting Provider: Armond Anthony Consult Reason/Comments: Afib, chest pain Do you want consulting provider notified?: Yes Primary care physician: Bryan Walter [facility] Course: Chief Complaint: Palpitation Hospital course: This is a very pleasant 59-year-old patient of Dr. Walter. Patient also follows with marketing senior recruiter Dr. ISAAC Anthony. Chronic stable medical conditions include urinary stress incontinence, thyroid nodules, stress fracture of T11, migraines, hypothyroid, osteoarthritis, hypertension. Patient has known atrial fibrillation. Has been on flecainide 50 mg twice a day. Patient presented with severe palpitations and she became uncomfortable. Last for a few hours. Was not short of breath, no dizziness not chest pressure. Presented to the ER. No fever no chills. Cardiology was consulted. In the ER was found to be in sinus bradycardia. Patient was seen by cardiology/EP Dr. Anthony. Dose of flecainide was increased to 3 times a day. Consultation: Dr. Child from cardiology Dr. Abel Anthony from electrophysiology Physical examination: VITAL SIGNS: 98.1, 50, 18, 140/77, 90% room air GENERAL: BMI 31, comfortable. EYES: Pupils equal. Conjunctiva normal. HEENT: External appearance of nose and ears normal, oral cavity grossly normal. NECK: JVD not raised; masses not palpable. HEART: First and second heart sounds are normal; no edema. LUNGS: Respiratory rate normal; clear to auscultation. ABDOMEN: Soft, nontender, liver spleen not palpable, no masses palpable. PSYCH: Alert and oriented x3; mood and affect normal. INVESTIGATIONS, reviewed in the clinical context: White count 6.4 hemoglobin 14.6 potassium 4.1 creatinine 0.85 Troponin I 3 negative TSH normal LDL 89 EKG tracing-sinus bradycardia Chest x-ray film personally reviewed by me-negative Assessment: -Episodes of severe palpitations in a patient with known atrial fibrillation currently in sinus rhythm. -Chronic urinary stress incontinence -Hypothyroid -Primary osteoarthritis -Essential hypertension -Sinus bradycardia Disposition: Home Patient Condition at Discharge: Stable Plan - Discharge Summary Discharge Rx Participant: No New Discharge Prescriptions: Continue Cholecalciferol [Vitamin D3 (25 Mcg = 1000 Iu)] 1,000 unit PO DAILY Metoprolol Succinate [Toprol XL] 25 mg PO DAILY Levothyroxine Sodium [Synthroid] 50 mcg PO DAILY Losartan Potassium 150 mg PO DAILY Apixaban [Eliquis] 5 mg PO Q12H Sertraline [Zoloft] 50 mg PO DAILY Changed Flecainide [Tambocor] 50 mg PO Q8H #0 Discharge Medication List Cholecalciferol [Vitamin D3 (25 Mcg = 1000 Iu)] 1,000 unit PO DAILY 12/22/17 [History] Levothyroxine Sodium [Synthroid] 50 mcg PO DAILY 12/22/17 [History] Metoprolol Succinate [Toprol XL] 25 mg PO DAILY 12/22/17 [History] Losartan Potassium 150 mg PO DAILY 02/08/19 [History] Apixaban [Eliquis] 5 mg PO Q12H 06/30/19 [History] Sertraline [Zoloft] 50 mg PO DAILY 06/30/19 [History] Flecainide [Tambocor] 50 mg PO Q8H #0 07/01/19 [Rx] Follow up Appointment(s)/Referral(s): Armond Anthony MD [STAFF PHYSICIAN] - 1 Week Bryan Walter DO [Primary Care Provider] - 1 Week Discharge Disposition: HOME SELF-CARE
[2019-07-06] MEDS ORDERED: CHOLECALCIFEROL 1,000 UNIT TAB PO SCH (18:06)
== END 2019-07-01 17:28 | disposition home or self-care (01) ==
LOC: EC 14:40 → 1SOBS 18:37
PROVIDERS: ADMIT Hospitalist; ATTEND Hospitalist
DX: I48.0 Paroxysmal atrial fibrillation (principal); R07.9 Chest pain, unspecified; R00.1 Bradycardia, unspecified; I10 Essential (primary) hypertension; F32.9 Major depressive disorder, single episode, unspecified; E03.9 Hypothyroidism, unspecified; M19.91 Primary osteoarthritis, unspecified site; N39.3 Stress incontinence (female) (male); G43.909 Migraine, unspecified, not intractable, without status migrainosus; N95.1 Menopausal and female climacteric states; E66.9 Obesity, unspecified; Z68.31 Body mass index [BMI] 31.0-31.9, adult; I83.90 Asymptomatic varicose veins of unspecified lower extremity; E04.2 Nontoxic multinodular goiter; Z79.890 Hormone replacement therapy; Z79.01 Long term (current) use of anticoagulants; Z79.899 Other long term (current) drug therapy; Z88.8 Allergy status to other drugs, medicaments and biological substances; Z85.3 Personal history of malignant neoplasm of breast; Z87.891 Personal history of nicotine dependence; Z87.312 Personal history of (healed) stress fracture; Z80.3 Family history of malignant neoplasm of breast; Z83.2 Family history of diseases of the blood and blood-forming organs and certain disorders involving the immune mechanism; Z80.49 Family history of malignant neoplasm of other genital organs; Z82.49 Family history of ischemic heart disease and other diseases of the circulatory system
CPT/HCPCS: 93005 ×2; 99285; 36415; 80061; 80053; 83735; 84443; 84484 ×2; 85025; 85610; 85730; 81001; 71046; G0378 ×2

== ENCOUNTER → 2019-08-30 | Outpatient (CLI) | payer OTHER ==
[2019-08-30 11:19] LABS: HCT 42.2 % (34.0-46.0); HGB 13.5 gm/dL (11.4-16.0); MCHC 32.1 g/dL (31.0-37.0); MCV 90.4 fL (80.0-100.0); Mean Platelet Volume 6.8; Platelet Count 280 k/uL (150-450); RBC 4.67 m/uL (3.80-5.40); RDW 13.3 % (11.5-15.5); WBC 6.4 k/uL (3.8-10.6)
[2019-08-30 17:54] LABS: African American GFR (CKD) 63.6 (60.0-200.0); Anion Gap 2.4 mmol/L (4.00-12.00); Carbon Dioxide 28.6 mmol/L (21.6-31.8); Non-African American GFR(CKD) 54.9 (60.0-200.0); Potassium 4.2 mmol/L (3.5-5.5)
== END | disposition home or self-care (01) ==
LOC: LABWHC1 09:57
PROVIDERS: ATTEND Internal Medicine Clinical Cardiac Electrophysiology
DX: Z01.812 Encounter for preprocedural laboratory examination (principal); I48.0 Paroxysmal atrial fibrillation; I34.0 Nonrheumatic mitral (valve) insufficiency
CPT/HCPCS: 36415; 80051; 82565; 82947; 84520; 85027

== ENCOUNTER 2019-09-07 05:54 | Observation (INO) | payer OTHER ==
[2019-09-07] MEDS ORDERED: SODIUM CHLORIDE 0.9% 1,000 ML IV SCH (06:09)
[2019-09-07] MEDS ORDERED: fentaNYL (PF) 50 MCG/ML 2 ML AMP ONE (07:50)
[2019-09-07] MEDS ORDERED: ePHEDrine SULFATE/0.9% NACL/PF 50 MG/5 ML SYRINGE IV ONE (07:50)
[2019-09-07] MEDS ORDERED: PROPOFOL 10 MG/ML 20 ML VIAL IV ONE (07:50)
[2019-09-07] MEDS ORDERED: LIDOCAINE 1% INJ 10MG/ML (20 ML MDV) ONE ×2 (07:50→08:03)
[2019-09-07] MEDS ORDERED: HEPARIN SODIUM,PORCINE 5,000 UNIT/ML 1 ML VIAL ONE (07:50)
[2019-09-07] MEDS ORDERED: ISOPROTERENOL 250 MCG/1.25 ML SYR IV ONE (07:50)
[2019-09-07] MEDS ORDERED: MIDAZOLAM 2 MG/2 ML VIAL ONE (07:50)
[2019-09-07] MEDS ORDERED: SUCCINYLCHOLINE CHLORIDE 100 MG/5 ML SYR IV ONE (07:50)
[2019-09-07] MEDS ORDERED: HEPARIN SOD,PORK IN 0.45% NACL 25,000 UNIT in 0.45% NACL 1 250ML.BAG IV ONE ×2 (08:04)
--- NOTE | 2019-09-07 08:11 | P.HPCAR ---
History of Present Illness This is Dr. Anthony dictating a H&P on this patient The patient was interviewed and examined by me IMPRESSION / ASSESSMENT: Paroxysmal, drug refractory atrial fibrillation, symptomatic Mild P a prolonged duration Hypertension Tobacco use Appropriate anticoagulated with ELIQUIS 5 mg twice daily PLAN: Proceed with pulmonary vein isolation, cryoablation pulmonary veins Patient's last dose of ELIQUIS was last evening This and benefits have already discussed with her in detail and documented in the EMR note in the office HPI Patient continues to have palpitations and breakthrough episodes of atrial fibrillation despite flecainide for a total 200 mg daily. Atrial fibrillation makes her very tired and fatigued even after she can was to sinus rhythm In sinus rhythm she has a mildly prolonged NE interval She denies any fever chills cough expectoration flulike syndrome bronchitis She has no gastroenteritis no nausea vomiting diarrhea She has no chest discomfort no syncope recently ROS: No fever chills or rigors, no cough, phlegm or expectoration, no nausea, vomiting or diarrhea, no hematuria, dysuria, no musculoskeletal complaints, no strokes or seizures, no skin lesions. EXAMINATION: Patient's weight 85 kg Afebrile 98.3F, pulse rate in the 60s, blood pressure 155/76. His mercury pulse ox 95% Breath sounds are clear no rhonchi no crackles Normal heart sounds normal S1 normal S2 no murmurs or gallops or rub Abdomen is soft nontender Extremity is warm no edema REVIEW OF LABS, ECG & MEDICAL DATA Potassium 4.2, hemoglobin 13.5, GFR 54.9, white count 6.4, creatinine 1.1 and platelets 280,000 Physical Exam Vitals: Vital Signs Temp Pulse Resp BP Pulse Ox 09/07/19 06:25 98.3 F 62 16 155/76 95 Intake and Output 09/06/19 09/07/19 09/07/19 22:59 06:59 14:59 Intake Total 50 0 Balance 50 0 Intake: IV 50 0 Other: Weight 85.6 kg Past Medical History Past Medical History: Atrial Fibrillation, Cancer, Hypertension, Osteoarthritis (OA), Thyroid Disorder Additional Past Medical History / Comment(s): MIGRAINES, DDD , HX OF BREAST CANCER (2000-SURGERY & TAMOXIFEN)., STATES FRACTURE OF T-11., THYROID NODULE., STRESS INCONTINENCE., History of Any Multi-Drug Resistant Organisms: None Reported Past Surgical History: Breast Surgery, Section Additional Past Surgical History / Comment(s): LUMPECTOMY X2, RIGHT BREAST DUCT REMOVED, GANGLION CYST., X2, COLONOSCOPY Past Anesthesia/Blood Transfusion Reactions: No Reported Reaction Smoking Status: Former smoker - Past Family History Mother Family Medical History: Cancer Additional Family Medical History / Comment(s): BREAST CA Father Additional Family Medical History / Comment(s): POLYCYTHEMIA Brother(s) Family Medical History: Cancer Additional Family Medical History / Comment(s): POLYP CANCER Sister(s) Family Medical History: Cancer Additional Family Medical History / Comment(s): 2 SISTERS= UTERINE CANCER Physical Examination Vital Signs Temp Pulse Resp BP Pulse Ox 09/07/19 06:25 98.3 F 62 16 155/76 95 Intake and Output 09/06/19 09/07/19 09/07/19 22:59 06:59 14:59 Intake Total 50 0 Balance 50 0 Intake: IV 50 0 Other: Weight 85.6 kg Results Current Medications Generic Name Dose Route Start Last Admin Trade Name Richq PRN Reason Stop Dose Admin Sodium Chloride 1,000 mls @ 20 mls/hr 09/07/19 06:09 09/07/19 06:30 Saline 0.9% IV 50 mls .Q24H NADEEM Administration Intake and Output 09/06/19 09/07/19 09/07/19 22:59 06:59 14:59 Intake Total 50 0 Balance 50 0 Intake: IV 50 0 Other: Weight 85.6 kg
[2019-09-07] MEDS ORDERED: LIDOCAINE 1% INJ 10MG/ML (20 ML MDV) SQ ONE (08:27)
[2019-09-07] MEDS ORDERED: IOPAMIDOL-370 100ML BTL INJ ONE (10:38)
[2019-09-07] MEDS ORDERED: SODIUM CHLORIDE 0.9% 500 ML 500 ML IV ONE (11:00)
[2019-09-07] MEDS ORDERED: ACETAMINOPHEN IV (For NPO) 1,000 MG in EMPTY BAG 1 BAG IVPB ONE (11:10)
[2019-09-07] MEDS ORDERED: HYDROcodone/APAP 5-325MG 1 EACH TAB PO PRN (11:10)
--- NOTE | 2019-09-07 11:31 | P.PCN ---
Preoperative Diagnosis: Diagnosis Atrial fibrillation, symptomatic, refractory to therapy, flecainide 150 mg a day Result No left atrial appendage mass seen on intracardiac echo Successful pulmonary vein isolation of all veins using cryo-ablation Complete entrance block in all 4 veins confirmed No evidence for phrenic nerve injury Esophageal deflection YES Electrical cardioversion with a synchronized shock across the chest NO Procedure details Patient was brought to the EP lab in a fasting state. Written informed consent was obtained prior to the procedure. Procedure performed under general anesthesia After initial muscle relaxant use, muscle relaxants were not given thereafter in order to assess phrenic nerve during procedure. Patient prepped and draped as per protocol Full cryo-set up with standard preparation of the cryoablation tools done. Femoral Venous access obtained on the right and left groins Venous and arterial Sheaths placed. Diagnostic catheters for the high right atrium, phrenic nerve stimulation and pacing, His bundle, RV and coronary sinus placed Intracardiac echo catheter placed. Long sheath placed in the right atrium Left and right transseptal catheterization performed under intracardiac echo guidance. Intravenous heparin with aCT above 300 Later, catheter positioning and balloon positioning in the left atrium, under intracardiac echo guidance Diagnostic EP study with Drug infusion Coronary sinus pacing and recording Baseline measurements Sinus cycle length 150, OH interval 181 ms, QRS 91 ms and QT 45 ms Atrial pacing performed from the high right atrium and the coronary sinus RV pacing Sinus recovery times is 605 100 ms were 975 and 997 ms. Corresponding corrected sinus node recovery times abnormal AV node Wenckebach block 340 ms Transseptal catheterization performed RA pressure 8/3/6 LA pressure 15/3/9 Transseptal catheterization performed with standard sheath. The cryoablation sheath was then placed with an over the wire exchange without any acute complications. All 4 pulmonary veins were isolated in the following sequence: Left superior followed by left inferior followed by right superior followed by right inferior The cryo-ablation balloon was placed at the os of each vein 1.5 mL of IV dye was injected to confirm an occluded vein Goal during cryoablation was to achieve complete occlusion of the pulmonary vein, achieve -30 degrees C at 30 seconds and achieve -40 degrees C at 60 seconds and a time to effect of less than 60-90 seconds, . If not the balloon was repositioned to obtain this result After completion of Cryoblation with durations from 180-240 seconds, entrance block was confirmed with the Attain circular catheter in a roving fashion around the antrum of the pulmonary veins Phrenic nerve pacing was performed from the SVC, right innominate vein area and diaphragm voltage was monitored. Diaphragmatic contractions were also monitored manually for strength of contraction. Parameter goals for each cryo freeze Complete occlusion of the appropriate vein -30 degrees C by 30 seconds -40 degrees C by 60 seconds Minimum between minus 40-55 degrees C Thaw time greater than 10 seconds Balloon visualized by intracardiac echo The esophagus was intubated. Esophageal Temperature monitoring with a CIRCA catheter formed. Esophageal deflection for hypothermia of the esophagus below 30 degrees C Left superior pulmonary vein Complete isolation, entrance block Left inferior pulmonary vein Complete isolation, entrance block Right superior pulmonary vein, during phrenic nerve pacing Complete isolation, entrance block Cryoblation outside the right superior pulmonary vein at its roof, 2 minutes Cryoblation outside the anterior nolan between the right-sided veins, 2 minutes Right inferior pulmonary vein, during phrenic nerve pacing Complete isolation, entrance block At the end of the procedure the Achieve catheter was once again used to check for entrance block Phrenic nerve stimulation was performed to confirm diaphragmatic stimulation the end of the procedure Cine fluoroscopy was performed at the very end of the procedure to confirm movement of both diaphragms with inspiration and expiration At the end of the procedure the patient was extubated Heparin was reversed Venous sheaths were removed and hemostasis assured Procedures performed (PVI - CRYO Ablation) Diagnostic EP study CS pacing and recording Left and right transseptal catheterization Catheter the mapping of the tachycardia (NOT 3D mapping) Intracardiac echocardiography Pulmonary vein isolation with transseptal and comprehensive EPS, [id number] Drug Infusion [id number]
--- NOTE | 2019-09-07 11:33 | P.PRLE ---
RE: Micheline Tam Dear Felicitas Patient underwent successful cryoablation of all 4 pulmonary veins. Following that despite high dose Isuprel could not induce any atrial fibrillation Hopefully this results in a significant improvement in the A. fib burden if she will continue anticoagulation for now and we will see her again in a week Thank you for entrusting me with the care of the patient Warm regards Sincerely Armond Anthony
[2019-09-07] MEDS ORDERED: SODIUM CHLORIDE 0.9% 1,000 ML IV ONE (12:34)
[2019-09-07] MEDS: APIXABAN 5 MG TAB PO SCH ×2 (12:52→21:07)
[2019-09-07] MEDS: SODIUM CHLORIDE 0.9% 1,000 ML IV SCH (12:53)
[2019-09-07] MEDS: FLECAINIDE 50 MG TAB PO SCH ×2 (12:54→16:35)
[2019-09-07] MEDS ORDERED: ONDANSETRON 4 MG/2 ML VIAL IVP PRN (16:20)
[2019-09-07] MEDS: ACETAMINOPHEN TAB 325 MG TAB PO PRN (16:43)
[2019-09-08] MEDS: FLECAINIDE 50 MG TAB PO SCH ×2 (00:35→08:07)
[2019-09-08] MEDS: SODIUM CHLORIDE 0.9% 1,000 ML IV SCH (00:38)
[2019-09-08] MEDS: ACETAMINOPHEN TAB 325 MG TAB PO PRN (06:28)
[2019-09-08] MEDS ORDERED: LEVOTHYROXINE 50 MCG TAB PO SCH (06:30)
[2019-09-08 06:38] LABS: Calcium 8.9 mg/dL (8.4-10.2); Potassium 3.8 mmol/L (3.5-5.1)
[2019-09-08 07:58] VITALS: RESP 18
--- NOTE | 2019-09-08 08:06 | P.DS ---
Providers Date of admission: 09/07/19 19:20 Attending physician: Armond Anthony Primary care physician: [facility] Course: Patient is doing well. History she was quite nauseous and she had a little bit of oozing from the right groin and on the groin is healed well. There is no hematoma no swelling no bruising She no chest discomfort dizziness lightheadedness. She did have some palpitations but these are atrial couplets only no atrial fibrillation she maintains sinus rhythm On examination she is afebrile 98.1F pulse rate in the 80s blood pressure 132 77 mmHg normal respirations Breath sounds are clear no rhonchi no crackles Heart sounds S1 and S2 normal is soft systolic murmur Abdomen soft nontender Extremity is warm no edema Impression Paroxysmal drug refractory to fibrillation and symptomatic Failed flecainide 50 mrem 3 times a day Status post cryoablation of all 4 pulmonary veins with complete isolation Plan Reduce flecainide to 50 mrem twice daily Continue anticoagulation for at least 3 months and reevaluation of CHARLES VASC or thereafter Continue all other cardiac medications and incentive spirometry ambulate in the hallways stable she will go home by this afternoon in follow-up as previously scheduled. Plan - Discharge Summary Discharge Rx Participant: No New Discharge Prescriptions: New Flecainide [Tambocor] 50 mg PO Q12HR #180 tablet Discontinued Flecainide [Tambocor] 50 mg PO Q8H #0 No Action Cholecalciferol [Vitamin D3 (25 Mcg = 1000 Iu)] 1,000 unit PO DAILY Metoprolol Succinate [Toprol XL] 25 mg PO DAILY Levothyroxine Sodium [Synthroid] 50 mcg PO DAILY Losartan Potassium 150 mg PO DAILY Apixaban [Eliquis] 5 mg PO Q12H Sertraline [Zoloft] 50 mg PO DAILY Discharge Medication List Cholecalciferol [Vitamin D3 (25 Mcg = 1000 Iu)] 1,000 unit PO DAILY 12/22/17 [History] Levothyroxine Sodium [Synthroid] 50 mcg PO DAILY 12/22/17 [History] Metoprolol Succinate [Toprol XL] 25 mg PO DAILY 12/22/17 [History] Losartan Potassium 150 mg PO DAILY 02/08/19 [History] Apixaban [Eliquis] 5 mg PO Q12H 06/30/19 [History] Sertraline [Zoloft] 50 mg PO DAILY 06/30/19 [History] Flecainide [Tambocor] 50 mg PO Q12HR #180 tablet 09/07/19 [Rx] Follow up Appointment(s)/Referral(s): Armond Anthony MD [STAFF PHYSICIAN] - 1 Week (follow up with Dr. Anthony/Neli Camarillo/Shelia Kumar) Activity/Diet/Wound Care/Special Instructions: Post EP study - Ablation instructions 1. Keep access sites dry for 2 days. 2. No heavy lifting or straining for 2 days. 3. Avoid bending the hips repeatedly for 2 days. 4. You may go up and down stairs slowly Call if the following is noted 1. Bleeding, increasing swelling or pain at the access sites. 2. Increasing chest discomfort, especially upon taking a deep breath. 3. Increasing shortness of breath, at rest or with exertion. 4. Undue cough / phlegm 5. Difficulty or pain while swallowing. 6. Pain or change in color in the extremities. 7. Fever, chills, rigors. 8. Increasing headache or neurologic symptoms. 9. Dizziness, fainting, palpitations Continue all medications including eliquis
[2019-09-08] MEDS: APIXABAN 5 MG TAB PO SCH (08:07)
[2019-09-08] MEDS ORDERED: LOSARTAN 50 MG TAB PO SCH (09:00)
[2019-09-08] MEDS ORDERED: SERTRALINE 50 MG TAB PO SCH (09:00)
[2019-09-08] MEDS ORDERED: METOPROLOL SUCCINATE (ER) 25 MG TAB.ER.24H PO SCH (09:00)
[2019-09-08 11:40] VITALS: BP 121/72; PULSE 73; TEMP 98.4
[2019-09-08] MEDS ORDERED: FLECAINIDE 50 MG TAB PO SCH (21:00)
== END 2019-09-08 15:58 ==
LOC: CATHEP 05:54 → 1SOBS 11:00 → CATHEP 19:32
PROVIDERS: ADMIT Internal Medicine Clinical Cardiac Electrophysiology; ATTEND Internal Medicine Clinical Cardiac Electrophysiology
DX: I48.0 Paroxysmal atrial fibrillation (principal); I10 Essential (primary) hypertension; M19.90 Unspecified osteoarthritis, unspecified site; E04.1 Nontoxic single thyroid nodule; G43.909 Migraine, unspecified, not intractable, without status migrainosus; M51.9 Unspecified thoracic, thoracolumbar and lumbosacral intervertebral disc disorder; F32.9 Major depressive disorder, single episode, unspecified; Z72.0 Tobacco use; Z79.01 Long term (current) use of anticoagulants; Z79.899 Other long term (current) drug therapy; Z79.890 Hormone replacement therapy; Z85.3 Personal history of malignant neoplasm of breast; Z98.890 Other specified postprocedural states; Z87.81 Personal history of (healed) traumatic fracture; Z87.448 Personal history of other diseases of urinary system; Z80.3 Family history of malignant neoplasm of breast; Z83.2 Family history of diseases of the blood and blood-forming organs and certain disorders involving the immune mechanism; Z80.9 Family history of malignant neoplasm, unspecified; Z80.49 Family history of malignant neoplasm of other genital organs
CPT/HCPCS: 85347; 93623; 93662; 93609; 93656; 80048; G0378 ×2; C1759; C1769 ×4; C1894; C1730 ×2; C1893; C1733; J2250; J1644 ×2; J2405; J2001; J3010; J0131; J0330; J2704; Q9967

== ENCOUNTER → 2020-01-19 | Outpatient (CLI) | payer OTHER ==
--- NOTE | 2020-01-19 10:42 | MR ---
EXAMINATION TYPE: MR iac wo/w con DATE OF EXAM: 01/19/2020 COMPARISON: HISTORY: Left Sided Hearing Loss, Muffled Type Sounds TECHNIQUE: Multiplanar, multisequence images of the brain and brainstem is performed without and with IV contras t, utilizing 8.5 mL intravenous Gadavist . FINDINGS: Diffusion weighted images demonstrate no evidence of a recent infarct or other diffusion ab normality. There is no extra-axial fluid collection or significant white matter signal abnormality. The ventricular system and cisternal spaces are normal in size and appearance. The brain volume is age appropriate. Midline structures demonstrate normal morphology. The craniocervical junction appears within normal limits. Post contrast images demonstrate no abnormal enhancement. The dural venous sinuses appear pa tent. The optic nerves are ectatic. There is no orbital flattening. There is a trace amount of fluid surrou nding the optic nerves which is not finding. There are scattered focal areas of abnormal signal throughout the white matter which is nonspecific. Confluent areas of signal surrounding the ventricular system is nonspecific but most likely in the ba sis of remote microvascular ischemia. Changes of mild chronic mastoiditis. Changes of chronic sinusit is with nasal septal deviation noted. IMPRESSION: 1. No evidence of cerebellopontine angle mass or acoustic schwannoma. 2. 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 Thi s can occasionally be seen with papilledema correlate clinically. 3. Mild nonspecific white matter changes most typical remote microvascular ischemia.
== END | disposition home or self-care (01) ==
LOC: RADMRIMAIN 09:04
PROVIDERS: ATTEND Otolaryngology
DX: G51.8 Other disorders of facial nerve (principal); H91.90 Unspecified hearing loss, unspecified ear; H47.10 Unspecified papilledema; R90.82 White matter disease, unspecified; I67.82 Cerebral ischemia
CPT/HCPCS: 70553; A9585

== ENCOUNTER → 2021-10-24 | Outpatient (CLI) | payer OTHER ==
--- NOTE | 2021-10-24 13:10 | CONS ---
CONSULTATION DATE OF SERVICE: 10/24/2021 This 61-year-old lady has been evaluated in [facility] for difficulties initiating sleep and multiple awakenings from sleep. HISTORY OF PRESENT ILLNESS/SLEEP-WAKE EVALUATION: Patient's usual sleep schedule is from 11 p.m. to 8 a.m. on weekdays and from midnight until 7 a.m. on weekends. She does have problems with falling asleep, has a TV set in the bedroom. She prefers to sleep on the side position. She has difficulties falling asleep while on the back position. She has plantar fascitis and back problems, and that is also a reason why she has difficulties falling asleep. She wakes up from sleep 3 times with nocturia. No history of hypnagogic hallucinations, sleep paralysis or cataplexy. Positive history of palpitations during sleep. During the day, the patient usually does not take any naps. Welch Sleepiness Scale is 3. PAST MEDICAL HISTORY: Positive for recent atrial fibrillation, preparing for cardiac ablation, mitral valve prolapse diagnosed by echocardiogram, preparing for MYRA, hypothyroidism, hypertension, menopause with hot flashes, hyperlipidemia, plantar fascitis, back problems, basal cell carcinoma of the face. PAST SURGICAL HISTORY: Status post cardiac ablation in August of 2019 for atrial fibrillation, face surgery for basal cell carcinoma. MEDICATIONS: 1. sartan 160 mg once a day. 2. Metoprolol 25 mg half tablet once a day. 3. Flecainide 50 mg two tablets a day. 4. Sertraline 50 mg once a day. 5. Eliquis 5 mg twice a day. 6. Rosuvastatin 5 mg once a day. 7. Levothyroxine 50 mcg once a day. 8. Multivitamins. 9. Zinc. 10.Additional vitamin D3. SOCIAL HISTORY: Positive for smoking in the past for 7 years; quit in 1984. Alcohol consumption rarely. FAMILY HISTORY: Hypertension, sleep apnea, cancer, restless legs, acid reflux. REVIEW OF SYSTEMS: Multiple awakenings from sleep, palpitations. No fevers. No double vision. No recent chest pain. No shortness of breath. No abdominal pain. No bleeding episodes. No blood in the urine. No seizure episodes. PHYSICAL EXAMINATION: GENERAL: Pleasant lady without distress. VITAL SIGNS: BP 160/81, HR 66, RR 16, height 5 feet 7 inches, weight 186, body mass index 29.1, temperature 98.1, oxygen saturation at room air 96%. HEENT: PERRLA, EOMI, evaluation of oropharynx showed tongue protrudes midline. Short distance between soft palate and posterior pharyngeal wall. Vertical position of soft palate. Mallampati II. NECK: Supple, no JVD. Thyroid is not palpable. Neck measures 13-1/2 inches in circumference. LUNGS: Clear to percussion and to auscultation. Good air exchange. No wheezing or rhonchi. HEART: S1, S2 irregular. ABDOMEN: Soft and nontender. Bowel sounds are present. No organomegaly appreciated. EXTREMITIES: No clubbing or cyanosis. DITCHER OPERATOR: Awake, alert, and oriented X3. Cranial nerves 2 to 7 intact. There is no fasciculation or atrophy. noted. No focal deficits observed. IMPRESSION: 1. Multiple awakenings from sleep with nocturia, short distance between soft palate and posterior pharyngeal wall, nocturia; possible obstructive sleep apnea-hypopnea syndrome. 2. Atrial fibrillation, status post cardiac ablation in August of 2019. Preparing for another cardiac ablation procedure. 3. Mitral valve prolapse. Patient is preparing for transesophageal echocardiogram for evaluation of severity of mitral valve prolapse. 4. Hypertension. 5. Menopause with hot flashes. Risk of obstructive sleep apnea for females is increased during menopause. 6. Hypothyroidism. This also may increase risk for obstructive sleep apnea. 7. Hyperlipidemia. 8. Plantar fascitis with discomfort in the legs during the night and during sleep. Rule out periodic limb movements. 9. Back problems, difficulties initiating sleep, psychophysiological insomnia; also insomnia related to back problems, fasciitis and hot flashes. PLAN: 1. Polysomnography for evaluation of patient's breathing during sleep, and also to check for possible periodic limb movements during the night. 2. Following plan after reviewing results of sleep study. If the sleep study is positive for obstructive sleep apnea-hypopnea syndrome, CPAP titration for correction of respiratory abnormalities. 3. Sleep hygiene with regular time in bed for at least 8 hours. No watching TV in bedroom. 4. No driving if feeling any sleepiness. Patient denied any significant sleepiness during the day. 5. Watching weight. Current BMI is 29.1. Thank you very much for referring this patient for consultation. Sincerely, Bo Gramajo MD, PhD, FAASM Diplomat of [employer] Sleep Medicine Board of [employer] Senior Ui Developer of [facility] MMODL / IJN: [id number] /
== END ==
LOC: SLEEP 10:21
PROVIDERS: ATTEND Internal Medicine
DX: R35.1 Nocturia (principal); I48.91 Unspecified atrial fibrillation; I34.1 Nonrheumatic mitral (valve) prolapse; I10 Essential (primary) hypertension; E03.9 Hypothyroidism, unspecified; E78.5 Hyperlipidemia, unspecified; M72.2 Plantar fascial fibromatosis; F51.04 Psychophysiologic insomnia; N95.1 Menopausal and female climacteric states; M54.9 Dorsalgia, unspecified; Z98.890 Other specified postprocedural states; Z87.891 Personal history of nicotine dependence; Z79.01 Long term (current) use of anticoagulants; Z79.890 Hormone replacement therapy; Z79.899 Other long term (current) drug therapy; Z88.8 Allergy status to other drugs, medicaments and biological substances
CPT/HCPCS: 99211

== ENCOUNTER → 2021-11-05 | Outpatient (CLI) | payer OTHER ==
--- NOTE | 2021-11-05 15:09 | US ---
EXAMINATION TYPE: US kidneys/renal and bladder DATE OF EXAM: 11/05/2021 COMPARISON: NONE CLINICAL HISTORY: R31.1 MICROHEMATURIA. Microhematuria. EXAM MEASUREMENTS: Right Kidney: 10.6 x 4.4 x 4.2 cm Left Kidney: 10.4 x 5.2 x 4.0 cm Right Kidney: There appears to be dilated renal pelvis. Left Kidney: No hydronephrosis or masses seen Bladder: Appears to be wnl. Bilateral Jets seen: Yes IMPRESSION: Mild fullness right renal pelvis. Otherwise unremarkable study.
== END | disposition home or self-care (01) ==
LOC: RADUSWWP 14:35
PROVIDERS: ATTEND Urology
DX: R31.1 Benign essential microscopic hematuria (principal)
CPT/HCPCS: 76770

== ENCOUNTER 2021-11-06 10:10 | Day surgery (SDC) | payer OTHER ==
[2021-10-16 15:22] VITALS: BMI 28.6
[2021-11-06] MEDS ORDERED: SODIUM CHLORIDE 0.9% 500 ML 500 ML IV ONE (10:35)
[2021-11-06 10:51] VITALS: RESP 16; TEMP 98.2
[2021-11-06] MEDS ORDERED: fentaNYL (PF) 50 MCG/ML 2 ML AMP ONE (11:11)
[2021-11-06] MEDS ORDERED: IV FLUID CONTINUATION 500 ML IV ONE (11:19)
[2021-11-06] MEDS ORDERED: BENZOCAINE SPRAY 1 CAN MUCOUS MEM ONE (11:24)
[2021-11-06] MEDS ORDERED: fentaNYL (PF) 50 MCG/ML 2 ML AMP IV ONE (11:33)
[2021-11-06] MEDS ORDERED: MIDAZOLAM 2 MG/2 ML VIAL IV ONE ×2 (11:33→11:34)
--- NOTE | 2021-11-06 11:57 | P.TEE ---
Indications for Procedure(s): Assessment of mitral valve prolapse and regurgitation Date of Procedure: 11/06/21 Preoperative Diagnosis: Mitral valve prolapse and mitral regurgitation Postoperative Diagnosis: Moderate mitral regurgitation and prolapse of the anterior mitral leaflet Description of Procedure(s): INDICATION: This is a 61-year-old female with history of atrial fibrillation, mitral valve prolapse and mitral regurgitation. Transthoracic echocardiogram was size to of mild and probably moderate mitral regurgitation. A MYRA examination is requested for further evaluation CONSENT:. Informed verbal consent is obtained from the patient PROCEDURE: Patient was brought to the lab in a fasting state. Patient was prepped and draped in the usual fashion. She was given 2.5 mg of Versed and 50 g of fentanyl for sedation. The throat was sprayed with Hurricaine. A lubricated Omni probe was introduced into the oropharynx and was advanced into the esophagus. Multiple views were obtained from the esophagus and also stomach. Color, pulsed and continuous wave Doppler studies were performed. Saline contrast bubble injection was performed. Patient tolerated the procedure well. No immediate complications. Patient was sent to the observation unit in stable condition FINDINGS:. The aortic valve is tricuspid with normal opening. A discussion there is trace aortic regurgitation. The aortic root diameter is normal. The mitral valve shows thickening and prolapse the anterior mitral leaflet. There is eccentric mitral regurgitation directed posteriorly, laterally. The PISA value is about 0.7 to 0.8. There is no reversal of flow in the pulmonary veins. The left atrial appendage is free of any clot. It the intra-atrial septum appeared to be intact without any shunt. Saline contrast bubble injection did not reveal any shunting across the interatrial septum. Left ankle function appeared to be normal. Left atrium is mildly enlarged. The aorta is free of any Sigmund plaque IMPRESSION: 1. Moderate mitral regurgitation #2. Prolapse of the anterior mitral leaflet with mitral regurgitation jet directed posteriorly #3. No clot in the left atrial appendage #4. No PFO #5. Preserved LV function. #6. Aorta is free of any plaque. #7. Mild to moderate left atrial enlargement PLAN: continue current medical therapy. Follow up with serial echoes
[2021-11-06 14:18] VITALS: BP 147/73; PULSE 69
== END 2021-11-06 13:05 | disposition home or self-care (01) ==
LOC: CATHCVL 10:10
PROVIDERS: ATTEND Internal Medicine Cardiovascular Disease
DX: I48.91 Unspecified atrial fibrillation (principal); I34.0 Nonrheumatic mitral (valve) insufficiency; I10 Essential (primary) hypertension; Z82.49 Family history of ischemic heart disease and other diseases of the circulatory system; Z79.01 Long term (current) use of anticoagulants; Z20.822 Contact with and (suspected) exposure to COVID-19; Z79.890 Hormone replacement therapy; Z79.899 Other long term (current) drug therapy
CPT/HCPCS: 93312; 93320; 93325; 87635; J2250; J3010

== ENCOUNTER → 2021-12-03 | Outpatient (CLI) | payer OTHER ==
[2021-12-03 18:30] LABS: HCT 45.1 % (37.2-46.3); HGB 14.1 g/dL (12.0-15.0); MCH 28.5 pg (27.0-32.0); MCHC 31.3 g/dL (32.0-37.0); MCV 91.1 fL (80.0-97.0); NRBC Per 100 WBC 0 /100 WBCS (0.0-0.0); Platelet Count 297 X 10*3/uL (140-440); RBC 4.95 X 10*6/uL (4.10-5.20); RDW 13.7 % (11.5-14.5); WBC 6.55 X 10*3/uL (4.50-10.00)
[2021-12-03 18:40] LABS: African American GFR (CKD) 75.7 (60.0-200.0); Anion Gap 11.8 mmol/L (10.00-18.00); Blood Urea Nitrogen 17.1 mg/dL (9.0-27.0); Carbon Dioxide 25.4 mmol/L (20.0-27.5); Non-African American GFR(CKD) 65.3 (60.0-200.0)
== END | disposition home or self-care (01) ==
LOC: LABPAT 12:08
PROVIDERS: ATTEND Internal Medicine Clinical Cardiac Electrophysiology
DX: Z01.812 Encounter for preprocedural laboratory examination (principal); Z20.822 Contact with and (suspected) exposure to COVID-19; I48.0 Paroxysmal atrial fibrillation
CPT/HCPCS: 80051; 82565; 84520; 85027; U0003; C9803

== ENCOUNTER 2021-12-06 11:45 | Day surgery (SDC) | payer OTHER ==
[2021-12-04 15:09] VITALS: BMI 29.5
[~2021-12-06 11:45] MED LIST changes: -LACTATED RINGERS 1,000 ML IV SCH; +LIDOCAINE 1% (10MG/ML) FOR IV START INTRADERMA PRN
[2021-12-06] MEDS: SODIUM CHLORIDE 0.9% 1,000 ML IV SCH (12:14)
[2021-12-06] MEDS ORDERED: GLYCOPYRROLATE 0.2 MG/ML 2 ML VIAL ONE (14:53)
[2021-12-06] MEDS ORDERED: ATROPINE SULFATE 0.1 MG/ML 10ML SYRINGE ONE (14:53)
[2021-12-06] MEDS ORDERED: SUCCINYLCHOLINE CHLORIDE 100 MG/5 ML SYR IV ONE (14:53)
[2021-12-06] MEDS ORDERED: HEPARIN SODIUM,PORCINE 5,000 UNIT/ML 1 ML VIAL ONE (14:53)
[2021-12-06] MEDS ORDERED: fentaNYL (PF) 50 MCG/ML 2 ML AMP ONE (14:53)
[2021-12-06] MEDS ORDERED: PROPOFOL 10 MG/ML 20 ML VIAL IV ONE (14:53)
[2021-12-06] MEDS ORDERED: ROCURONIUM 10 MG/ML (5 ML VIAL) IV ONE (14:53)
[2021-12-06] MEDS ORDERED: NEOSTIGMINE 1 MG/ML 10 ML VIAL ONE (14:53)
[2021-12-06] MEDS ORDERED: LIDOCAINE 1% INJ 10MG/ML (20 ML MDV) ONE ×2 (14:53→15:14)
[2021-12-06] MEDS ORDERED: MIDAZOLAM 2 MG/2 ML VIAL ONE (14:53)
[2021-12-06] MEDS ORDERED: ePHEDrine 50 MG/ML 1 ML VIAL ONE (14:53)
[2021-12-06] MEDS ORDERED: FUROSEMIDE 10 MG/ML 2 ML VIAL ONE (14:53)
[2021-12-06] MEDS ORDERED: LIDOCAINE 1% INJ 10MG/ML (20 ML MDV) SQ ONE (15:41)
[2021-12-06] MEDS ORDERED: HEPARIN SOD,PORK IN 0.45% NACL 25,000 UNIT in 0.45% NACL 1 250ML.BAG IV ONE (16:00)
[2021-12-06] MEDS ORDERED: IOPAMIDOL-250 50ML BTL IV ONE (16:40)
[2021-12-06] MEDS ORDERED: HEPARIN SODIUM (1,000 UNIT/ML) 1,000 UNIT in SODIUM CHLORIDE 0.9% 1,000 ML IRRIGATION ONE (17:30)
[2021-12-06] MEDS ORDERED: DEXTROSE 5% IN WATER 100 ML with AMIODARONE 150 MG IV ONE (18:36)
[2021-12-06] MEDS ORDERED: ACETAMINOPHEN TAB 325 MG TAB PO PRN (19:03)
--- NOTE | 2021-12-06 19:09 | P.EPPROC ---
- EP Procedure Note Electrophysiology Procedure Note: Diagnosis Paroxysmal atrial fibrillation despite successful cryoablation of the pulmonary veins and demonstrated noninducibility at that study Moderate mitral regurgitation mitral prolapse Symptomatic episodes of A. fib Impression Successful PVI with cryoablation Successful and complete linear ablation along the left atrial roof, somewhat posteriorly Induction of atrial fibrillation with burst stimulation in the coronary sinus at 230 milliseconds Successful RF ablation along fractionated electrograms in the left atrial septum Linear ablation along the ridge between the left atrial appendage and the left- sided veins Ablation in this area resulted in somewhat organization of the atrial fibrillation but without termination Electrical cardioversion was performed Details Patient was brought to the EP lab in a fasting state. Written informed consent was obtained prior to the procedure. IV antibiotics administered Endoscope and CIRCA temperature monitoring catheter placed in the esophagus Venous access obtained with the right and left groins Patient was in sinus rhythm the start of the study. She been asked to stop flecainide for 4 days prior to the procedure. Intracardiac echo catheter placed. No left atrial appendage thrombus. Normal LV function. No pericardial effusion Catheter placed the coronary sinus and the right atrium and SVC Sinus cycle length 184 ms, MO interval 266 ms, QRS 90 ms and QT interval 420 ms Sinus recovery times at 600, 504 100 ms were 1621, 1381 and 1220 ms AV node Wenckebach block 450 ms Burst stimulation the coronary sinus at 230 ms induced atrial fibrillation after PVI and linear ablation in the left atrial roof Right atrial pressure 10/6/8 mmHg On intracardiac echo guidance and fluoroscopic, transseptal catheterization performed Sheath placed in the left atrium First cryoablation the pulmonary veins was performed successfully. Teodoro W was monitored. Esophagus was monitored Esophageal deflection, a rightward was performed Following that linear ablation in the left atrial roof was performed Complete line of block was confirmed later with voltage mapping using a Pentaray catheter Burst stimulation in the coronary sinus resulted in induction of atrial fibrillation This was disorganized atrial fibrillation Using a Pentaray catheter, 3-D electro-anatomic mapping was performed in the left atrium RF ablation was performed along the septum from the roof down to the right inferior pulmonary vein Patient remained in atrial fibrillation, disorganized Following that linear ablation was performed along the ridge between the left- sided pulmonary veins and the left atrial appendage In the midportion of the ridge patient food organize from time to time with RF ablation within good disorganize once again A. fib did not terminate with a complete line of ablation was performed in this region with cord contact force, good power Vagal reflexes were noted during ablation this region IV atropine was administered Electrical cardioversion was then performed at the end of the procedure 150 mg IV amiodarone was infused At the end of the procedure, no pericardial effusion was noted Normal LV function normal RV function noted Venous accesses were secured with Vascade Patient tolerated the procedure well without any acute complications Plan stop flecainide Continue TANVIR
[2021-12-06] MEDS: ACETAMINOPHEN IV (For NPO) 1,000 MG in EMPTY BAG 1 BAG IVPB ONE ×2 (19:35→19:50)
[2021-12-06] MEDS ORDERED: CEPHALEXIN 500 MG CAP PO STA (21:00)
[2021-12-06] MEDS: LACTATED RINGERS 1,000 ML IV SCH (21:01)
[2021-12-06] MEDS: APIXABAN 5 MG TAB PO SCH (21:35)
[2021-12-07] MEDS: LACTATED RINGERS 1,000 ML IV SCH (01:07)
[2021-12-07] MEDS: SODIUM CHLORIDE 0.9% 1,000 ML IV SCH (01:09)
[2021-12-07 08:40] VITALS: BP 114/68; PULSE 75; RESP 16; TEMP 98.4
[2021-12-07] MEDS: APIXABAN 5 MG TAB PO SCH (08:41)
[2021-12-07] MEDS ORDERED: SERTRALINE 50 MG TAB PO SCH (09:00)
[2021-12-07] MEDS ORDERED: VALSARTAN 160 MG TAB PO SCH (09:00)
[2021-12-07] MEDS ORDERED: LEVOTHYROXINE 50 MCG TAB PO SCH (09:00)
[2021-12-07] MEDS ORDERED: METOPROLOL SUCCINATE (ER) 25 MG TAB.ER.24H PO SCH (09:00)
[2021-12-07] MEDS ORDERED: COLCHICINE 0.6 MG EACH PO SCH (09:00)
[2021-12-07] MEDS ORDERED: ATORVASTATIN 10 MG TAB PO SCH (09:00)
--- NOTE | 2021-12-10 16:15 | P.DS ---
Providers Attending physician: Armond Anthony Primary care physician: [facility] Course: Patient is doing well from a cardiac standpoint. She denies any chest discomfort dizziness lightheadedness or palpitations Blood pressure stable no arrhythmias overnight rhythm normal No JVD Abdomen is soft nontender Normal heart sounds Extremities are warm Groins of healed well Impression Paroxysmal atrial fibrillation with RVR Easily inducible atrial fibrillation despite successful PVI and linear ablation of the left atrial roof Ablation along the septum and in the groove between the left atrial appendage and the left-sided veins performed Electrical cardioversion performed Likely Vein of Fredis A. fib Plan Continue anticoagulation Start flecainide. Patient is refractory flecainide Consideration for Multaq in the future if needed Patient will be discharged home and follow-up in the office in a week's time Patient Condition at Discharge: Stable Plan - Discharge Summary Discharge Rx Participant: No New Discharge Prescriptions: Discontinued Flecainide [Tambocor] 50 mg PO Q12HR #180 tablet No Action Cholecalciferol [Vitamin D3 (25 Mcg = 1000 Iu)] 1,000 unit PO DAILY Metoprolol Succinate [Toprol XL] 12.5 mg PO DAILY Levothyroxine Sodium [Synthroid] 50 mcg PO DAILY Apixaban [Eliquis] 5 mg PO Q12H Sertraline [Zoloft] 50 mg PO DAILY Zinc 50 mg PO DAILY Rosuvastatin Calcium 5 mg PO DAILY Ascorbic Acid [Vitamin C] 1,000 mg PO DAILY Valsartan 160 mg PO DAILY Multivit with Calcium,Iron,Min [Women's Multivitamin] 1 each PO DAILY Discharge Medication List Cholecalciferol [Vitamin D3 (25 Mcg = 1000 Iu)] 1,000 unit PO DAILY 12/22/17 [History] Levothyroxine Sodium [Synthroid] 50 mcg PO DAILY 12/22/17 [History] Metoprolol Succinate [Toprol XL] 12.5 mg PO DAILY 12/22/17 [History] Apixaban [Eliquis] 5 mg PO Q12H 06/30/19 [History] Sertraline [Zoloft] 50 mg PO DAILY 06/30/19 [History] Ascorbic Acid [Vitamin C] 1,000 mg PO DAILY 10/16/21 [History] Multivit with Calcium,Iron,Min [Women's Multivitamin] 1 each PO DAILY 10/16/21 [History] Rosuvastatin Calcium 5 mg PO DAILY 10/16/21 [History] Valsartan 160 mg PO DAILY 10/16/21 [History] Zinc 50 mg PO DAILY 10/16/21 [History] Follow up Appointment(s)/Referral(s): Armond Anthony MD [STAFF PHYSICIAN] - 1 Week (Follow-up in one week with Shelia Kumar np) Patient Instructions/Handouts: Cardioversion (DC), Cardiac Ablation (DC) Activity/Diet/Wound Care/Special Instructions: Post EP study - Ablation instructions 1. Keep access sites dry for 2 days. 2. No heavy lifting or straining for 2 days. 3. Avoid bending the hips repeatedly for 2 days. 4. You may go up and down stairs slowly Call if the following is noted 1. Bleeding, increasing swelling or pain at the access sites. 2. Increasing chest discomfort, especially upon taking a deep breath. 3. Increasing shortness of breath, at rest or with exertion. 4. Undue cough / phlegm 5. Difficulty or pain while swallowing. 6. Pain or change in color in the extremities. 7. Fever, chills, rigors. 8. Increasing headache or neurologic symptoms. 9. Dizziness, fainting, palpitations Continue ELIQUIS Continue cardiac medications Stop flecainide Discharge Disposition: HOME SELF-CARE
--- NOTE | 2021-12-10 16:18 | P.PRLE ---
RE: Micheline Tam Dear Felicitasarnel Huang underwent redo A. fib ablation She is undergone A. fib ablation about 2 years back with successful pulmonary vein isolation At that time atrial fibrillation could not be induced after the ablation She underwent redo ablation of the pulmonary veins a fairly isolated However despite linear ablation of the left atrium she was still very easily inducible She underwent ablation of the left atrial septum and the groove between the left atrial appendage and the left-sided pulmonary veins Left atrial mapping suggested that she may have a vein of Fredis source of atrial fibrillation which is a fairly refractory variety Flecainide has not worked well for her and therefore stopped it completely She will continue anticoagulation If in the future she has more atrial fibrillation I will consider Multaq instead Thank you for entrusting me with the care of the patient Warm regards Sincerely Armond Anthony
== END 2021-12-07 13:34 | disposition home or self-care (01) ==
LOC: CATHEP 11:45 → 3SCARD 19:00 → CATHEP 12-07 13:34
PROVIDERS: ATTEND Internal Medicine Clinical Cardiac Electrophysiology
DX: I48.0 Paroxysmal atrial fibrillation (principal); I34.0 Nonrheumatic mitral (valve) insufficiency; Z79.01 Long term (current) use of anticoagulants; Z79.899 Other long term (current) drug therapy; E78.5 Hyperlipidemia, unspecified; I10 Essential (primary) hypertension; Z82.49 Family history of ischemic heart disease and other diseases of the circulatory system; Z88.8 Allergy status to other drugs, medicaments and biological substances; Z85.3 Personal history of malignant neoplasm of breast; Z87.891 Personal history of nicotine dependence; E07.9 Disorder of thyroid, unspecified; G43.909 Migraine, unspecified, not intractable, without status migrainosus
CPT/HCPCS: 92960; 93656; 93657; C1759; C1894 ×2; C1769 ×5; C1760; C1730 ×2; C1731; C1893; C1733; C1766; C1732; J2250; J1644 ×3; J1940; J2710; J0282; J0690; J2001; J0461; J3010; J0131; J0330; J2704; Q9966

== ENCOUNTER → 2022-01-17 | Outpatient (CLI) | payer OTHER ==
--- NOTE | 2022-01-17 21:42 | SFUN ---
SLEEP CENTER FOLLOW UP NOTE DATE OF SERVICE: 01/17/2022 This 61-year-old lady has been followed in Sleep Center to discuss results of sleep study and following plan. The patient had a polysomnogram recently and I discussed results of the sleep study with her in detail. No significant respiratory abnormalities were documented during the sleep study. Normal oxygenation during sleep. Periodic limb movements were documented in moderate range; 29.5 times per hour with 3.9 microarousals per hour. The patient does not have any real complaints about twitching of her legs or kicking during sleep. [place] Sleepiness Scale today is 4, which is normal. MEDICATIONS: Levothyroxine 50 mcg once a day, valsartan 160 mg once a day, rosuvastatin 5 mg once a day, sertraline mg once a day, Eliquis 5 mg twice a day, metoprolol 25 mg half of the tablet daily. PHYSICAL EXAMINATION: GENERAL: Pleasant patient in no distress. VITAL SIGNS: BP 130/77, HR 76, RR 16, height 5 feet 7 inches, weight 188, temperature 99.2, oxygen saturation at room air 96%. HEENT: PERRLA, EOMI, evaluation of oropharynx showed tongue protrudes midline. NECK: Supple, no JVD. Thyroid is not palpable. LUNGS: Clear to percussion and to auscultation. Good air exchange. No wheezing or rhonchi. HEART: S1, S2 irregular. ABDOMEN: Soft and nontender. Bowel sounds are present. No organomegaly appreciated. EXTREMITIES: No clubbing or cyanosis. GARMENT FORM ASSEMBLER: Awake, alert, and oriented X3. Cranial nerves 2 to 7 intact. There is no fasciculation or atrophy. noted. No focal deficits observed. IMPRESSION: 1. No significant respiratory abnormalities were documented during the sleep study. Normal oxygenation during sleep. 2. Moderate periodic limb movements were documented during the sleep test with few microarousals. 3. Atrial fibrillation, status post cardiac ablation in 2019. 4. Mitral valve prolapse. 5. Hypertension. 6. Menopause. 7. Hypothyroidism. 8. Hyperlipidemia. 9. Plantar fasciitis. 10.Back problems. 11.Psychophysiological insomnia. PLAN: 1. I discussed with the patient the possibility of pharmacotherapy for periodic limb movements. At the present time we agreed, because of no real clinical symptoms, not to start therapy. 2. Please check iron profile, including ferritin level. If ferritin level is less than 50 mcg/mL, replacement of iron is recommended. 3. Sleep hygiene with regular time in bed for 7-1/2 to 8 hours. 4. No driving if feeling sleepiness. 5. Watching weight. SSRIs increase the risk for periodic limb movements. Thank you very much for allowing me to participate in the management of your patient. Sincerely, Bo Gramajo MD, PhD, FAASM Diplomat of [place] [employer] Sleep Medicine Board of [place] [employer] [facility] [place] MMODL / IJN: [id number] /
== END ==
LOC: SLEEP 15:30
PROVIDERS: ATTEND Internal Medicine
DX: F51.04 Psychophysiologic insomnia (principal); G47.61 Periodic limb movement disorder; I34.1 Nonrheumatic mitral (valve) prolapse; I10 Essential (primary) hypertension; Z78.0 Asymptomatic menopausal state; E03.9 Hypothyroidism, unspecified; E78.5 Hyperlipidemia, unspecified; M72.2 Plantar fascial fibromatosis; M53.80 Other specified dorsopathies, site unspecified; Z79.890 Hormone replacement therapy; Z79.01 Long term (current) use of anticoagulants; Z88.8 Allergy status to other drugs, medicaments and biological substances; Z87.891 Personal history of nicotine dependence

== ENCOUNTER → 2022-03-25 | Outpatient (CLI) | payer OTHER ==
--- NOTE | 2022-03-25 17:48 | XR ---
EXAMINATION TYPE: PA chest and right rib series (5 views) DATE OF EXAM: 03/25/2022 COMPARISON: 06/30/2019 HISTORY: 62-year-old female R07.81, pleurodynia after fall one and half weeks ago. FINDINGS: The cardiomediastinal silhouette, aorta, and pulmonary vasculature are within normal limits. Some tra ce patchy density at the lateral right costophrenic angle, probably atelectasis. No displaced greater fracture seen. IMPRESSION: There may be minimal patchy atelectasis at the periphery of the right base. No displaced right rib fr acture seen.
== END | disposition home or self-care (01) ==
LOC: RADXRMAIN 11:28
PROVIDERS: ATTEND Nurse Practitioner Family
DX: R07.81 Pleurodynia (principal)

== ENCOUNTER → 2022-05-23 | Outpatient (CLI) | payer OTHER ==
--- NOTE | 2022-05-23 13:04 | XR ---
EXAMINATION TYPE: XR chest 2V DATE OF EXAM: 05/23/2022 COMPARISON: 03/25/2022 INDICATION: Subacute cough x3 weeks TECHNIQUE: Frontal and lateral views of the chest are obtained. FINDINGS: The heart size is normal. The pulmonary vasculature is normal. Some posterior costophrenic angle blunting may be present. Lungs otherwise appear clear.. IMPRESSION: 1. Posterior costophrenic angle blunting. Correlate for atelectasis or pneumonia. Follow-up can be pe rformed as clinically indicated
== END | disposition home or self-care (01) ==
LOC: RADXRMAIN 12:09
PROVIDERS: ATTEND Family Medicine
DX: R05.2 Subacute cough (principal)
CPT/HCPCS: 71046

== ENCOUNTER → 2022-07-01 | Outpatient (CLI) | payer OTHER ==
--- NOTE | 2022-07-01 11:54 | XR ---
EXAMINATION TYPE: XR chest 2V DATE OF EXAM: 07/01/2022 11:50 AM COMPARISON: Chest radiographs from 05/23/2022. TECHNIQUE: XR chest 2V Frontal and lateral views of the chest. CLINICAL INDICATION:Female, 62 years old with history of R05.2 SUBACUTE COUGH; FINDINGS: Lungs/Pleura: There is no evidence of pleural effusion, focal consolidation, or pneumothorax. Pulmonary vascularity: Unremarkable. Heart/mediastinum: Cardiomediastinal silhouette is unremarkable. Musculoskeletal: No acute osseous pathology. IMPRESSION: No acute cardiopulmonary disease/process.
== END | disposition home or self-care (01) ==
LOC: RADXRMAIN 11:36
PROVIDERS: ATTEND Family Medicine
DX: R05.2 Subacute cough (principal)
CPT/HCPCS: 71046

== ENCOUNTER → 2022-07-05 | Outpatient (CLI) | payer OTHER ==
[2022-07-05 14:19] LABS: HCT 42.2 % (37.2-46.3); HGB 13.5 g/dL (12.0-15.0); MCV 87.6 fL (80.0-97.0); Mean Platelet Volume 9.9 fL (9.5-12.2); NRBC Per 100 WBC 0 /100 WBCS (0.0-0.0); Platelet Count 282 X 10*3/uL (140-440); RBC 4.82 X 10*6/uL (4.10-5.20); RDW 13.6 % (11.5-14.5); WBC 5.68 X 10*3/uL (4.50-10.00)
[2022-07-05 14:50] LABS: African American GFR (CKD) 70.1 (60.0-200.0); Albumin 4.2 g/dL (3.8-4.9); Albumin/Globulin Ratio 1.99 (1.60-3.17); Anion Gap 9.9 mmol/L (10.00-18.00); BUN/Creat Ratio 12.83 Ratio (12.00-20.00); Blood Urea Nitrogen 12.8 mg/dL (9.0-27.0); Calcium 9.1 mg/dL (8.7-10.3); Carbon Dioxide 24.4 mmol/L (20.0-27.5); Globulin 2.1 g/dL (1.6-3.3); Non-African American GFR(CKD) 60.5 (60.0-200.0); Potassium 4.1 mmol/L (3.5-5.5); Total Bilirubin 0.5 mg/dL (0.30-1.20); Total Protein 6.3 g/dL (6.2-8.2)
== END | disposition home or self-care (01) ==
LOC: LABWHC1 10:07
PROVIDERS: ATTEND Family Medicine
DX: R52 Pain, unspecified (principal)
CPT/HCPCS: 36415; 80053; 85027

== ENCOUNTER → 2023-03-19 | Outpatient (CLI) | payer OTHER ==
--- NOTE | 2023-03-20 08:26 | MR ---
EXAMINATION TYPE: MR knee LT wo con DATE OF EXAM: 03/19/2023 COMPARISON: None HISTORY: Knee pain TECHNIQUE: Multiplanar, multisequence imaging of the left knee is performed without IV contrast. FINDINGS: MEDIAL MENISCUS: Anterior and posterior horns are intact without tear. LATERAL MENISCUS: Large tear posterior horn medial meniscus with bucket-handle component. Anterior ho rn appears intact although there is evidence of myxoid degeneration. CRUCIATE LIGAMENTS: The anterior and posterior cruciate ligaments are intact and unremarkable. COLLATERAL LIGAMENTS: The medial collateral ligament and lateral collateral ligament complex are inta ct and unremarkable. EXTENSOR MECHANISM: Visualized quadriceps and patellar tendons are intact. EFFUSION: No significant suprapatellar joint effusion. POPLITEAL CYST: Large Roman's cyst measuring 2.9 cm in length by 1.4 cm AP dimension. TRICOMPARTMENT SPACES: Moderate narrowing medial and lateral tibiofemoral joint spaces. Mild degenera tive narrowing patellofemoral joint space. CARTILAGE: Lateral standing noted. BONE MARROW SIGNAL: No focal abnormal marrow signal is appreciated. OTHER: No additional significant abnormality is appreciated. IMPRESSION: 1. Large tear posterior horn lateral meniscus with bucket-handle component. 2. Large Roman's cyst. 3. Changes of osteoarthritis
== END | disposition home or self-care (01) ==
LOC: RADMRIMAIN 06:08
PROVIDERS: ATTEND Family Medicine
DX: M17.12 Unilateral primary osteoarthritis, left knee (principal); S83.282A Other tear of lateral meniscus, current injury, left knee, initial encounter; M71.22 Synovial cyst of popliteal space [Baker], left knee; X58.XXXA Exposure to other specified factors, initial encounter

== ENCOUNTER → 2023-05-06 | Outpatient (CLI) | payer OTHER ==
[2023-05-06 16:42] LABS: Basophils # (A) 0.09 X 10*3/uL (0.00-0.10); Basophils % (A) 1.4 %; Eosinophils # (A) 0.39 X 10*3/uL (0.04-0.35); HCT 43.7 % (37.2-46.3); Lymphocytes # (A) 1.88 X 10*3/uL (0.90-5.00); Lymphocytes % (A) 29.1 %; MCH 28.2 pg (27.0-32.0); MCV 87.9 FL (80.0-97.0); Mean Platelet Volume 9.7 FL (9.5-12.2); Monocytes # (A) 0.67 X 10*3/uL (0.20-1.00); Monocytes % (A) 10.4 %; NRBC Per 100 WBC 0 X 10*3/uL (0.00-0.01); Neutrophils # (A) 3.41 X 10*3/uL (1.80-7.70); Neutrophils % (A) 52.9 %; Platelet Count 290 X 10*3/uL (140-440); RBC 4.97 X 10*6/uL (4.10-5.20); RDW 14.6 % (11.5-14.5); WBC 6.45 X 10*3/uL (4.50-10.00)
[2023-05-06 16:43] LABS: Anion Gap 8.9 mmol/L (4.00-12.00); Carbon Dioxide 28.1 mmol/L (21.6-31.8); Potassium 4.5 mmol/L (3.5-5.5)
== END | disposition home or self-care (01) ==
LOC: LABPAT 09:56
PROVIDERS: ATTEND Orthopaedic Surgery
DX: Z01.812 Encounter for preprocedural laboratory examination (principal); M23.92 Unspecified internal derangement of left knee
CPT/HCPCS: 80051; 85025

== ENCOUNTER 2023-05-29 11:01 | Day surgery (SDC) | payer OTHER ==
--- NOTE | 2023-05-28 13:59 | HP ---
HISTORY AND PHYSICAL DATE OF ANTICIPATED SURGERY: 05/29/2023. HISTORY OF PRESENT ILLNESS: Micheline Tam is a 63-year-old patient seen with progressive left knee pain. We discussed options for treatment. She elected to proceed with left knee arthroscopy. Consent was obtained. PAST MEDICAL HISTORY: Hypertension, hyperlipidemia, hypothyroidism, cardiovascular disease. PAST SURGICAL HISTORY: None. DAILY MEDICATIONS: 1. Levothyroxine. 2. Losartan. 3. Metoprolol. 4. Eliquis. ALLERGIES: None. SOCIAL HISTORY: She denies tobacco use. PHYSICAL EVALUATION OF LEFT KNEE: Her range of motion is 0 to 115 degrees. Mild effusion. Tenderness along lateral joint line. Positive lateral Ron's. Ligaments stable. Hip rotation without pain. Distal neurovascular exam intact. RADIOGRAPHS: Left knee radiographs revealed mild osteoarthritis and intra-articular effusion. MRI of left knee revealed lateral meniscal tear, Roman cyst. IMPRESSION: 1. Internal derangement of left knee with lateral meniscal tear. 2. Hypertension. 3. Hypothyroidism. PLAN: Left knee arthroscopy with partial lateral meniscectomy and debridement. MMODL / IJN: [id number] /
[~2023-05-29 11:01] MED LIST changes: +DEXAMETHASONE SOD PHOSPHATE 4 MG/ML 1 ML VIAL IV ONE; +HYDROmorphone 0.5 MG/0.5 ML SYRINGE IVP PRN; +LACTATED RINGERS 1,000 ML IV SCH; +ONDANSETRON 4 MG/2 ML VIAL IVP ONE
[2023-05-29] MEDS ORDERED: LACTATED RINGERS 1,000 ML IV ONE (11:25)
[2023-05-29] MEDS ORDERED: KETOROLAC 15 MG/ML 1 ML VIAL ONE (12:26)
[2023-05-29] MEDS ORDERED: MIDAZOLAM 2 MG/2 ML VIAL ONE (12:26)
[2023-05-29] MEDS ORDERED: fentaNYL (PF) 50 MCG/ML 2 ML AMP ONE (12:26)
[2023-05-29] MEDS ORDERED: LIDOCAINE 1% INJ 10MG/ML (20 ML MDV) ONE (12:26)
[2023-05-29] MEDS ORDERED: PROPOFOL 10 MG/ML 20 ML VIAL IV ONE (12:26)
[2023-05-29] MEDS ORDERED: BUPIVACAINE (PF) 0.25% 30 ML VIAL SQ ONE ×2 (12:29→13:11)
--- NOTE | 2023-05-29 13:29 | P.OP ---
Date of Procedure: 05/29/23 Preoperative Diagnosis: Internal derangement left knee Postoperative Diagnosis: 1. Tear medial and lateral meniscus left knee 2. Grade 4 chondromalacia femoral sulcus left knee 3. Reactive synovitis medial, lateral and suprapatellar compartments left knee 4. Grade 2/3 chondromalacia lateral femoral condyle left knee Procedure(s) Performed: 1. Arthroscopic partial medial and lateral meniscectomy left knee 2. Arthroscopic microfracture femoral sulcus left knee 3. Arthroscopic partial synovectomy medial, lateral and suprapatellar compartments left knee 4. Arthroscopic chondroplasty lateral femoral condyle left knee Anesthesia: DAKOTAA, local Surgeon: Tyler Johnston Estimated Blood Loss (ml): 9 Pathology: none sent Condition: stable Disposition: PACU Indications for Procedure: 63-year-old patient seen with progressive left knee pain. After treatment options were discussed, she elected to proceed with arthroscopy. Operative Findings: See description of procedure Description of Procedure: Patient was taken to the operative suite. Patient underwent a general anesthetic by the department of anesthesia. Patient was given preoperative antibiotics. The left lower extremity was placed in a well-padded arthroscopic leg ceja. The left leg was prepped and draped in the normal sterile orthopedic fashion. A lateral parapatellar and suprapatellar incision was made. Trochars were inserted. Arthroscopy was initiated. Suprapatellar pouch revealed diffuse thick reactive synovitis. The patellofemoral joint appeared to articulate congruently. There was grade 2 chondromalacia of the patella and grade 4 chondral malacia femoral sulcus with an area of exposed bone. The scope was guided into the medial gutter. No loose bodies or plica were identified. The scope was then guided into the medial compartment. A medial parapatellar incision was made. Trocar inserted followed by probe. There was a tear involving the posterior horn of the medial meniscus. There were grade 1 chondromalacia changes medial femoral condyle with no significant tears. There was thick reactive synovitis anteriorly. I performed a partial medial meniscectomy getting down to stable meniscal tissue. I performed a partial synovectomy decompressing the reactive synovitis. The residual meniscus was stable. There was good decompression of the synovitis. Scope and probe were then guided into the intercondylar notch. Cruciates were identified, probed and found to be stable. The scope and probe were then guided into lateral compartment. There was a complex tear involving the posterior horn and midbody lateral meniscus. There were grade 2/3 chondromalacia changes lateral femoral condyle with some osteochondral flap tears. There was thick reactive synovitis anteriorly. I performed a partial lateral meniscectomy getting down to stable meniscal tissue. I performed a chondroplasty of the lateral femoral condyle getting down to stable osteochondral tissue. I performed a partial synovectomy decompressing the reactive synovitis. The residual meniscus was stable. The residual osteochondral surface was stable. There was good decompression of the synovitis. The scope was in guided back into the suprapatellar compartment. I introduced a microfracture awl and I performed a microfracture to the area of exposed bone femoral sulcus penetrating the bone with resultant bleeding at the microfracture site. I introduced a motorized shaver and debrided some piecemeal fragments of meniscus I encountered and I performed a partial synovectomy decompressing the reactive synovitis. The shaver was removed. There was good decompression of the synovitis. I took one more look on the entire knee, no residual debris. Instruments were now removed from the joint. The joint was infiltrated with .25% Marcaine. Steri-Strips were applied to the portal sites. Sterile dressings were applied. The patient was placed into a SHABBIR hose. No tourniquet was utilized. The patient was awakened, transferred to a bed and taken to recovery stable satisfactory condition.
[2023-05-29] MEDS ORDERED: hydrALAZINE HCL 20 MG/ML 1 ML VIAL IVP ONE (13:34)
[2023-05-29 13:36] VITALS: TEMP 96.8
[2023-05-29] MEDS ORDERED: MEPERIDINE 50 MG/ML SYRINGE IVP ONE (14:07)
[2023-05-29 14:25] VITALS: RESP 18
[2023-05-29] MEDS ORDERED: HYDROcodone/APAP 5-325MG 1 EACH TAB ONE (14:29)
[2023-05-29 15:14] VITALS: BP 148/77
[2023-05-29 15:49] VITALS: PULSE 80
== END 2023-05-29 15:45 | disposition home or self-care (01) ==
LOC: OR 11:01
PROVIDERS: ATTEND Orthopaedic Surgery
DX: S83.282A Other tear of lateral meniscus, current injury, left knee, initial encounter (principal); M94.262 Chondromalacia, left knee; M65.862 Other synovitis and tenosynovitis, left lower leg; I10 Essential (primary) hypertension; E78.5 Hyperlipidemia, unspecified; E03.9 Hypothyroidism, unspecified; I25.10 Atherosclerotic heart disease of native coronary artery without angina pectoris; Z79.01 Long term (current) use of anticoagulants; Z79.899 Other long term (current) drug therapy; X58.XXXA Exposure to other specified factors, initial encounter
CPT/HCPCS: 29880; 29879; J2250; J0360; J1100; J2175; J0690; J2405; J2001; J3010; J1885; J2704; J0665

== ENCOUNTER → 2023-06-04 | Outpatient (CLI) | payer OTHER ==
--- NOTE | 2023-06-04 13:04 | US ---
EXAMINATION TYPE: US venous doppler duplex LE LT DATE OF EXAM: 06/04/2023 12:54 PM COMPARISON: NONE CLINICAL INDICATION: Female, 63 years old with history of R22.42 SWELLING IN LIMB M79.662 PAIN IN LI MB; Knee surgery 05/29/2023, on blood thinners. Pain. SIDE PERFORMED: Left TECHNIQUE: The lower extremity deep venous system is examined utilizing real time linear array sonog diya with graded compression, doppler sonography and color-flow sonography. VESSELS IMAGED: Common Femoral Vein Deep Femoral Vein Greater Saphenous Vein * Femoral Vein Popliteal Vein Small Saphenous Vein * Proximal Calf Veins (* superficial vessels) Left Leg: Negative for DVT. Medial lower posterior knee fluid collection = 3.6 x 2.8 x 1.5 cm. IMPRESSION: Grayscale, color doppler, spectral doppler imaging performed of the deep veins of the lo wer extremities. There is normal flow, compressibility, vascular waveforms.
== END | disposition home or self-care (01) ==
LOC: RADUSWWP 12:15
PROVIDERS: ATTEND Orthopaedic Surgery
DX: R22.42 Localized swelling, mass and lump, left lower limb (principal); M79.662 Pain in left lower leg; Z79.01 Long term (current) use of anticoagulants

== ENCOUNTER → 2023-10-22 | Outpatient (CLI) | payer OTHER ==
[2023-10-22 18:19] LABS: Basophils # (A) 0.08 X 10*3/uL (0.00-0.10); Basophils % (A) 1.4 %; Eosinophils # (A) 0.29 X 10*3/uL (0.04-0.35); HCT 44.1 % (37.2-46.3); HGB 14.2 g/dL (12.0-15.0); Lymphocytes # (A) 1.72 X 10*3/uL (0.90-5.00); Lymphocytes % (A) 29.6 %; MCH 28.6 pg (27.0-32.0); MCHC 32.2 g/dL (32.0-37.0); MCV 88.9 FL (80.0-97.0); Mean Platelet Volume 9.7 FL (9.5-12.2); Monocytes # (A) 0.47 X 10*3/uL (0.20-1.00); Monocytes % (A) 8.1 %; NRBC Per 100 WBC 0 X 10*3/uL (0.00-0.01); Neutrophils # (A) 3.25 X 10*3/uL (1.80-7.70); Neutrophils % (A) 55.7 %; Platelet Count 324 X 10*3/uL (140-440); RBC 4.96 X 10*6/uL (4.10-5.20); RDW 13.8 % (11.5-14.5); WBC 5.82 X 10*3/uL (4.50-10.00)
[2023-10-22 18:40] LABS: Blood Urea Nitrogen 16.4 mg/dL (9.0-27.0); Calcium 9.7 mg/dL (8.7-10.3); Carbon Dioxide 25.6 mmol/L (21.6-31.8); Chloride 107 mmol/L (96-109); Glucose 97 mg/dL (70-110); Potassium 4.8 mmol/L (3.5-5.5); Sodium 144 mmol/L (135-145)
[2023-10-22 20:38] LABS: INR 1.13 sec (0.93-1.11); Prothrombin Time 12.1 sec (9.9-11.9)
== END | disposition home or self-care (01) ==
LOC: LABPAT 11:09
PROVIDERS: ATTEND Orthopaedic Surgery
DX: Z01.812 Encounter for preprocedural laboratory examination (principal); Z22.322 Carrier or suspected carrier of Methicillin resistant Staphylococcus aureus; M17.12 Unilateral primary osteoarthritis, left knee
CPT/HCPCS: 36415; 80048; 85025; 85610; 87070

== ENCOUNTER 2023-11-03 09:12 | Day surgery (SDC) | payer OTHER ==
[2023-10-28 10:23] VITALS: BMI 31.3
--- NOTE | 2023-11-03 07:37 | HP ---
HISTORY AND PHYSICAL DATE OF SURGERY: 11/03/2023. Micheline Tam is a 63-year-old patient seen with progressive left knee pain consistent with symptomatic osteoarthritis. We discussed options for treatment. She elected to proceed with left total knee arthroplasty. Consent obtained. Previous medical clearance had been provided by Dr. Walter. PAST MEDICAL HISTORY: Hypertension, hypothyroidism, cardiovascular disease. PAST SURGICAL HISTORY: Left knee arthroscopy. DAILY MEDICATIONS: 1. Levothyroxine. 2. Losartan. 3. Metoprolol. 4. Eliquis. ALLERGIES: None. SOCIAL HISTORY: She denies tobacco use. PHYSICAL EVALUATION OF THE LEFT KNEE: Her range of motion is 0-110 degrees. Moderate effusion. Tenderness along the medial and lateral joint line. Crepitus on the medial patellofemoral compartments with range of motion. Pain with patellofemoral compression. Ligaments stable. Hip rotation without pain. Distal neurovascular exam is intact. Left knee radiographs revealed moderate medial and severe patellofemoral compartment osteoarthritis. IMPRESSION: 1. Left knee osteoarthritis. 2. Hypertension. 3. Hypothyroidism. PLAN: Left total knee arthroplasty. MMODL / IJN: [id number] /
[~2023-11-03 09:12] MED LIST changes: -DEXAMETHASONE SOD PHOSPHATE 4 MG/ML 1 ML VIAL IV ONE; -HYDROmorphone 0.5 MG/0.5 ML SYRINGE IVP PRN; -LACTATED RINGERS 1,000 ML IV SCH; -LIDOCAINE 1% (10MG/ML) FOR IV START INTRADERMA PRN; -ONDANSETRON 4 MG/2 ML VIAL IVP ONE; +TRANEXAMIC 1,000 MG/100ML-NACL 1,000 MG in SALINE 1 100ML.BAG IVPB PRN
[2023-11-03] MEDS: LACTATED RINGERS 1,000 ML IV ONE ×2 (10:10→13:21)
[2023-11-03] MEDS: ACETAMINOPHEN TAB 500 MG TAB PO PRN (10:10)
[2023-11-03] MEDS: MELOXICAM 7.5 MG TAB PO PRN (10:10)
[2023-11-03] MEDS: ONDANSETRON 4 MG/2 ML VIAL ONE (10:25)
[2023-11-03] MEDS: DEXAMETHASONE SOD PHOSPHATE 4 MG/ML 1 ML VIAL IVP ONE (10:25)
[2023-11-03] MEDS: MIDAZOLAM 2 MG/2 ML VIAL IVP ONE (10:26)
--- NOTE | 2023-11-03 10:50 | P.ANPRN ---
Procedure Note - Anesthesia - Nerve Block Performed Left Adductor Canal Infusion Time Out Performed: Yes (1026) Date of Procedure: 11/03/23 Procedure Start Time: 10:30 Procedure Stop Time: 10:42 Location of Patient: PreOp Indication: Acute Post-Operative Pain, Requested by Surgeon Sedation Type: Sedate with meaningful contact maintained Preparation: Sterile Prep, Sterile Dressing Position: Supine Catheter: Indwelling Needle Types: Pajunk Needle Gauge: 18 Ultrasound used to visualize needle placement: Yes Ultrasound used to observe medication spread: Yes Injectate: 0.5% Ropivacaine (see comment for volume) (20 mL of block solution containing 10 ML of 0.5% ropivacaine mixed with and 10 ML of preservative-free normal saline) Narrative: With 1 attempt, secured after confirming the test dose negative for aspiration, and no paresthesia. Blood Aspirated: No Pain Paresthesia on Injection Noted: No Resistance on Injection: Normal Image Stored and Saved: Yes Events: Uneventful and Well Tolerated
--- NOTE | 2023-11-03 10:52 | P.ANPRN ---
Procedure Note - Anesthesia - Nerve Block Performed Left iPack Single Time Out Performed: Yes (1026) Date of Procedure: 11/03/23 Procedure Start Time: 10:30 Procedure Stop Time: 10:42 Location of Patient: PreOp Indication: Acute Post-Operative Pain, Requested by Surgeon Sedation Type: Sedate with meaningful contact maintained Preparation: Sterile Prep, Sterile Dressing Position: Supine Catheter: None Needle Types: Pajunk Needle Gauge: 21 Ultrasound used to visualize needle placement: Yes Ultrasound used to observe medication spread: Yes Injectate: 0.5% Ropivacaine (see comment for volume) Blood Aspirated: No Pain Paresthesia on Injection Noted: No Resistance on Injection: Normal Image Stored and Saved: Yes Events: Uneventful and Well Tolerated (20 mL of block solution containing 10 ML of 0.5% ropivacaine mixed with 10 ML of preservative-free normal saline)
[2023-11-03] MEDS ORDERED: PROPOFOL 10 MG/ML 20 ML VIAL IV ONE (12:04)
[2023-11-03] MEDS ORDERED: GLYCOPYRROLATE 0.2 MG/ML 2 ML VIAL ONE (12:04)
[2023-11-03] MEDS ORDERED: TRANEXAMIC 1,000 MG/100ML-NACL PREMIX BAG ONE (12:04)
[2023-11-03] MEDS ORDERED: fentaNYL (PF) 50 MCG/ML 2 ML AMP ONE (12:04)
[2023-11-03] MEDS ORDERED: NEOSTIGMINE 1 MG/ML 10 ML VIAL ONE (12:04)
[2023-11-03] MEDS ORDERED: HYDROmorphone (PF) 1 MG/ML ONE (12:04)
[2023-11-03] MEDS ORDERED: LIDOCAINE 1% INJ 10MG/ML (20 ML MDV) ONE (12:04)
[2023-11-03] MEDS ORDERED: KETOROLAC 15 MG/ML 1 ML VIAL ONE (12:04)
[2023-11-03] MEDS ORDERED: SODIUM CHLORIDE 0.9% (PF) 10 ML VIAL ONE (12:04)
[2023-11-03] MEDS ORDERED: ROPIVACAINE 5 MG/ML 30 ML VIAL ONE (12:04)
[2023-11-03] MEDS ORDERED: ROCURONIUM 10 MG/ML (5 ML VIAL) IV ONE (12:04)
[2023-11-03] MEDS ORDERED: SUCCINYLCHOLINE CHLORIDE 200 MG/10 ML VIAL IV ONE (12:04)
[2023-11-03] MEDS: ceFAZolin 1,000 MG in SODIUM CHLORIDE 0.9% 1,000 ML IRRIGATION ONE (12:06)
[2023-11-03] MEDS ORDERED: HYDROmorphone 0.5 MG/0.5 ML SYRINGE IVP PRN (13:50)
[2023-11-03] MEDS ORDERED: NALOXONE 0.4 MG/ML 1 ML VIAL IV PRN (13:50)
[2023-11-03] MEDS ORDERED: HYDROmorphone 1 MG/ML 1 ML SYRINGE IVP PRN (13:50)
--- NOTE | 2023-11-03 13:50 | P.OP ---
Date of Procedure: 11/03/23 Preoperative Diagnosis: Left knee osteoarthritis Postoperative Diagnosis: Left knee osteoarthritis Procedure(s) Performed: Left total knee arthroplasty Implants: 1. DePuy attune size 5 narrow left cruciate retaining cemented femur 2. DePuy attune size 4 fixed-bearing cemented tibial baseplate 3. DePuy attune size 5 fixed-bearing cruciate retaining 7 mm polyethylene tibial insert 4. DePuy attune 35 mm all polyethylene cemented patella Anesthesia: regional (Adductor canal catheter, iPAQ block), spinal Surgeon: Tyler Johnston Bridge Maintenance Worker #1: Jim Ramos Estimated Blood Loss (ml): 45 Pathology: none sent Condition: stable Disposition: PACU Indications for Procedure: 63-year-old patient seen with symptomatic left knee osteoarthritis. After treatment options were discussed, she elected to proceed with total knee arthroplasty. Operative Findings: See description of procedure Description of Procedure: Patient was taken to the operative suite after having an adductor canal catheter placed by the department of anesthesia. Patient underwent a spinal anesthetic by the department of anesthesia. Patient was given preoperative IV intake antibiotics and TXA. A well-padded tourniquet was placed about the left lower extremity. The lower extremity was then prepped and draped in the normal sterile orthopedic fashion. The extremity was elevated, a tourniquet was insufflated to 300. A standard anterior incision was made sharply through skin. Dissection was taken down through the subcutaneous soft tissues down to the extensor mechanism. A medial arthrotomy was performed, patella was everted and knee was flexed. There was advanced osteoarthritis noted. I introduced my distal intramedullary femoral drill. I then introduced the distal femoral cutting jig. Av GARVEY secured the cutting jig with 2 pins. I held retractors in position while Av GARVEY performed the distal femoral resection through the guide area we now removed her distal femoral cutting guide. We now placed our 4-in-1 femoral cutting block and positioned and it was secured with 2 pins by Av GARVEY while I held the block in position. The distal femoral finishing was now completed. A proximal tibial cutting guide was positioned. I held the guide in the appropriate position with both hands well Av GARVEY inserted stabilizing pins into the guide. Proximal tibial cut was made. We now placed a trial femoral component into position, along with an appropriate size tibial tray and insert. We now took the knee through range of motion and had full extension good flexion and good overall soft tissue balance noted. The patella was everted and stabilized with 2 towel clips held by Av GARVEY while I performed a flush with patellar quad tendon utilizing a fresh sawblade. We templated the patella, appropriate drill holes were made. An appropriate trial patella was positioned, knee was taken through full range of motion with the patella tracking very nicely. The trial patella was removed. Drill holes were made through the femoral component. All trial components were removed after marking off the appropriate rotation of the tibia. Retractors were now positioned along the proximal tibia. An appropriate keel punch was made with the appropriate size tibial guide by myself on Av GARVEY assisted by holding retractors. At this point appropriate size implants were chosen and opened. The joint was irrigated copiously with pulse lavage mechanical irrigation. The wound was irrigated with pulse lavage mechanical irrigation. We mixed antibiotic methylmethacrylate. We placed the knee into flexion. We placed multiple retractors assisted by Av GARVEY to expose the proximal tibia. Once the methyl methacrylate was ready, the tibial component was cemented into place removing any excess methylmethacrylate form by both myself and Av GARVEY. The femoral component was cemented into place removing the removing any excess methylmethacrylate performed by both myself and Av GARVEY. We then inserted the appropriate size polyethylene tibial insert. We made sure that it was locked into position. We took the knee into full extension, and then back in a flexion making sure we had removed any excess methylmethacrylate. The patellar component was then cemented down and secured with clamp. Excess methylmethacrylate removed. We kept the knee in full extension, patellar clamp in position until methylmethacrylate had hardened. Once it had hardened the patellar clamp was removed. The knee was taken through full range of motion. The patella tracked nicely. There was good soft tissue balancing. The tourniquet was now released. Additional hemostasis was achieved via electrocautery. A second gram of TXA was given. The wound again was irrigated with pulse lavage mechanical irrigation. The extensor mechanism was repaired with Ethibond suture. We checked the repair with range of motion and it was stable. The subcutaneous soft tissues were repaired with Vicryl in layers. The skin was approximated with pernio/Dermabond. Sterile dressings were applied followed by loose web roll and Giovanni bandage. The patient was transferred to a bed, and taken to recovery in stable and satisfactory condition. Av GARVEY assisted with this complex procedure.
[2023-11-03] MEDS: MEPERIDINE 50 MG/ML SYRINGE IVP ONE (14:33)
--- NOTE | 2023-11-03 14:56 | XR ---
EXAMINATION TYPE: XR knee limited LT DATE OF EXAM: 11/03/2023 COMPARISON: 12/31/2022 HISTORY: 63-year-old female evaluation for postoperative abnormality in alignment. TECHNIQUE: 2 views FINDINGS: Images show placement of left total knee arthroplasty. Both distal femoral and proximal tib ial components of the prosthesis are well seated without periprosthetic fracture. Alignment grossly a natomic. Anterior soft tissue swelling with soft tissue air as well as intra-articular air related to recent operation. Anterior midline skin treasure. IMPRESSION: Uncomplicated postoperative appearance left total knee arthroplasty.
[2023-11-03] MEDS: ROPIVACAINE 1,100 MG, SODIUM CHLORIDE 0.9% 500 ML 330 ML, EMPTY PAIN BALL 1 EACH MISCELLANE PRN (14:57)
[2023-11-03] MEDS: METOPROLOL TARTRATE 5 MG/5 ML VIAL IVP ONE ×2 (16:11→16:21)
[2023-11-03] MEDS: LACTATED RINGERS 1,000 ML IV SCH (16:58)
[2023-11-03] MEDS: HYDROcodone/APAP 5-325MG 1 EACH TAB PO PRN (17:54)
[2023-11-03] MEDS: SENNOSIDES-DOCUSATE SODIUM 1 EACH TAB PO SCH (20:18)
[2023-11-03] MEDS: HYDROmorphone 0.5 MG/0.5 ML SYRINGE IVP PRN (22:44)
[2023-11-04] MEDS: HYDROcodone/APAP 7.5-325MG 1 EACH TAB PO PRN (03:05)
[2023-11-04] MEDS: ENOXAPARIN 30 MG/0.3 ML SYRINGE SQ SCH (06:50)
[2023-11-04] MEDS: ONDANSETRON 4 MG/2 ML VIAL IVP PRN (06:55)
[2023-11-04 08:10] VITALS: BP 145/77; PULSE 83; RESP 17; TEMP 98.8
[2023-11-04 08:35] LABS: Basophils # (A) 0.05 X 10*3/uL (0.00-0.10); Basophils % (A) 0.4 %; Eosinophils # (A) 0.02 X 10*3/uL (0.04-0.35); Eosinophils % (A) 0.2 %; HCT 41.4 % (37.2-46.3); HGB 13.1 g/dL (12.0-15.0); Lymphocytes # (A) 2.19 X 10*3/uL (0.90-5.00); MCH 28.4 pg (27.0-32.0); MCHC 31.6 g/dL (32.0-37.0); MCV 89.6 FL (80.0-97.0); Mean Platelet Volume 10.1 FL (9.5-12.2); Monocytes # (A) 1.16 X 10*3/uL (0.20-1.00); Monocytes % (A) 9.5 %; NRBC Per 100 WBC 0 X 10*3/uL (0.00-0.01); Neutrophils % (A) 71.4 %; Platelet Count 287 X 10*3/uL (140-440); RBC 4.62 X 10*6/uL (4.10-5.20); WBC 12.18 X 10*3/uL (4.50-10.00)
[2023-11-04] MEDS ORDERED: NON FORMULARY DRUG (Multivit With Calcium,Iron,Min [Women's Multivitamin] 1 EACH Tablet) PO SCH (09:45)
--- NOTE | 2023-11-04 10:30 | P.PN ---
Progress Note - Text Progress Note Date: 11/04/23 patient was seen and evaluated at bedside. Status post postoperative day 1 for left total knee arthroplasty patient had adductor canal catheter for postop pain control. Patient rated pain at rest 3-4 out of 10 in severity. Patient describes pain is aching, throbbing type on the sides of the knee and back of the knee. Patient started walking with support. With activity patient pain levels are 5-6 out of 10 in severity. With the help of oral pain medications pain levels are tolerable. Patient denied any weakness/ numbness in lower extremities. patient denied any fever, pain over the catheter site. Physical exam: Patient vital signs stable Patient is alert awake oriented 3 responding to all questions appropriately Examination of the catheter site showed dressing intact, no leaking fluid around the catheter, no redness, no tenderness over the catheter insertion area. plan: status post postoperative day 1 for left total knee arthroplasty with adductor canal catheter for pain control. Patient was discussed to continue the medication at the rate of 8 mL per hour until the pump is completely empty and instructed the patient how to discontinue the catheter.
[2023-11-04] MEDS: SERTRALINE 50 MG TAB PO SCH (11:11)
[2023-11-04] MEDS: LEVOTHYROXINE 50 MCG TAB PO SCH (11:12)
[2023-11-04] MEDS: METOPROLOL SUCCINATE (ER) 25 MG TAB.ER.24H PO SCH (11:12)
[2023-11-04] MEDS: ASCORBIC ACID 500 MG TAB PO SCH (11:12)
[2023-11-04] MEDS: CHOLECALCIFEROL 25 MCG (1000 IU) TABLET PO SCH (11:12)
[2023-11-04] MEDS: VALSARTAN 160 MG TAB PO SCH (11:16)
--- NOTE | 2023-11-04 12:33 | P.PN ---
Subjective Progress Note Date: 11/04/23 Principal diagnosis: Status post left total knee arthroplasty Patient evaluated at bedside, they are resting comfortably. Patient's daughter is present. She did ambulate well with therapy. She has been up using the restroom with no difficulty. She denies any headaches, lightheadedness, chest pain or shortness of breath Objective - Vital Signs Vital signs: Vital Signs Temp 98.8 F 11/04/23 07:22 Pulse 83 11/04/23 07:22 Resp 17 11/04/23 07:22 BP 145/77 11/04/23 07:22 Pulse Ox 90 L 11/04/23 07:22 FiO2 Intake & Output 11/03/23 11/04/23 11/04/23 18:59 06:59 18:59 Intake Total 2050 540 Output Total 300 Balance 1751 540 Weight 95.2 kg Intake: IV 2050 Oral 540 Output: Urine 300 Other: Voiding Method Toilet # Voids 1 1 - Exam Left lower extremity: Incision is clean, dry, and intact. The foam dressing is in good condition. There is minimal soft tissue swelling and ecchymosis surrounding the medial and lateral aspects of the incision. Calf is soft, no tenderness with palpation. Plantar flexion, dorsiflexion, EHL, FHL are intact. Sensory exam to light touch throughout the extremity is intact, dorsal pedis pulses 2+. - Labs CBC & Chem 7: 11/04/23 05:27 Labs: Abnormal Lab Results - Last 24 Hours (Table) 11/04/23 Range/Units 05:27 WBC 12.18 H (4.50-10.00) X 10*3/uL MCHC 31.6 L (32.0-37.0) g/dL Immature Gran # 0.06 H (0.00-0.04) X 10*3/uL Neutrophils # 8.70 H (1.80-7.70) X 10*3/uL Monocytes # 1.16 H (0.20-1.00) X 10*3/uL Eosinophils # 0.02 L (0.04-0.35) X 10*3/uL Assessment and Plan Assessment: Postoperative day #1 status post left total knee arthroplasty Plan: Pain control, continue with current medications. Plan for discharge with Scio 7.5 mg / 325 mg, will also prescribe stool softeners DVT prophylaxis, she will resume her Eliquis on 11/05/2023 Wound care instructions were discussed, this to include On-Q pain catheter, bandage instructions along with showering Home health care after discharge Other medical specialty recommendations appreciated Icing and elevating techniques discussed Discharge planning: Patient stable for discharge home today Time with Patient: Less than 30
--- NOTE | 2023-11-04 12:35 | P.DS ---
Providers Date of admission: 11/03/2023 Expected date of discharge: 11/04/23 Attending physician: Tyler Johnston Consults: 11/03/23 13:50 Consult Physician Routine Consulting Provider: Fabi Diaz Consult Reason/Comments: Medical management Do you want consulting provider notified?: Yes Primary care physician: Bryan Jose Angel [facility] Hospital Course: Date of admission: 11/03/2023 Date of discharge: 11/04/2023 Admission diagnosis: Status post left total knee arthroplasty Discharge diagnosis: Same Attending physician: Dr. Johnston Surgical procedures: Left total knee arthroplasty Brief history: Patient is a 63-year-old female with a history of progressive primary left knee osteoarthritis. At this point patient has failed conservative treatment measures and has opted to proceed with a elective left total knee arthroplasty. Hospital course: Details of patient's surgery can be found in operative report. Patient tolerated the procedure well and was subsequently transported to orthopedic floor. Patient's orthopeidc and medical care was provided daily. Patient had daily laboratory tests performed for evaluation of overall blood counts. Patient had daily physical therapy to include strengthening range of motion as well as education with walker ambulation. Patient was treated with Lovenox for their postoperative DVT prophylaxis during their inpatient stay. Patient was noted to have a relatively uneventful postoperative course. Patient reported satisfactory pain control with oral pain medications by postoperative day 0. Patient showed satisfactory progress with physical therapy. Patient moved steadily through the program and had no difficulty meeting the goals by postoperative day 1. Given patient's otherwise satisfactory course and having met physical therapy goals, plan is to discharge patient home on postoperative day 1. Discharge condition/disposition: Patient will be discharged home in stable condition. Discharge medications: Instructions are given on resumption of patient's normal daily medications per primary care recommendation, in addition patient will be prescribed Ridott 7.5 mg / 325 mg, senna S. Discharge instructions: 1. Wound care and infection precautions, keep incision dry and covered while showering, no lotions, creams, moisturizers. No soaking, tubs, pools, hottubs. Do not scrub over the incision. 2. Weight-bear as tolerated with walker / cane until follow-up. 3. Ice and elevate when necessary. Do not exceed 20 minutes per hour with ice pack. 4. Utilize compression sleeve until seen at first follow up appointment. 5. Visiting nursing care. 6. Home physical therapy including home CPM. 7. Pain meds and anticoagulants per prescription. 8. Pain medication has potential to cause constipation. Increase oral fluid and fiber intake. Contact primary care provider if you have not had a bowel movement within 48 hours after discharge 9. No anti-inflammatory medication until discussed at first post operative vi sit, this including Motrin, Aleve, Mobic, Diclofenac. 10. Follow up in office at 2 weeks postop with Av Ramos PA-C/Bal Belcher 11. Follow up with your primary care doctor 7-10 days after discharge. 12. Contact [facility] with any questions, . Procedures: Left total knee arthroplasty Patient Condition at Discharge: Good Plan - Discharge Summary Discharge Rx Participant: No New Discharge Prescriptions: New HYDROcodone/APAP 7.5-325MG [Ridott 7.5] 1 each PO Q4HR PRN #42 tab PRN Reason: Pain Sennosides/Docusate Sodium [Senna-S 8.6-50 mg Tablet] 2 each PO DAILY PRN #30 tablet PRN Reason: Constipation No Action Cholecalciferol [Vitamin D3 (25 Mcg = 1000 Iu)] 1,000 unit PO DAILY Metoprolol Succinate [Toprol XL] 12.5 mg PO QAM Levothyroxine Sodium [Synthroid] 50 mcg PO QAM Apixaban [Eliquis] 5 mg PO BID Sertraline [Zoloft] 50 mg PO QAM Ascorbic Acid [Vitamin C] 1,000 mg PO DAILY Valsartan 160 mg PO QAM Multivit with Calcium,Iron,Min [Women's Multivitamin] 1 each PO DAILY Discharge Medication List Cholecalciferol [Vitamin D3 (25 Mcg = 1000 Iu)] 1,000 unit PO DAILY 12/22/17 [History] Levothyroxine Sodium [Synthroid] 50 mcg PO QAM 12/22/17 [History] Metoprolol Succinate [Toprol XL] 12.5 mg PO QAM 12/22/17 [History] Apixaban [Eliquis] 5 mg PO BID 06/30/19 [History] Sertraline [Zoloft] 50 mg PO QAM 06/30/19 [History] Ascorbic Acid [Vitamin C] 1,000 mg PO DAILY 10/16/21 [History] Multivit with Calcium,Iron,Min [Women's Multivitamin] 1 each PO DAILY 10/16/21 [History] Valsartan 160 mg PO QAM 10/16/21 [History] HYDROcodone/APAP 7.5-325MG [Ridott 7.5] 1 each PO Q4HR PRN #42 tab 11/04/23 [Rx] Sennosides/Docusate Sodium [Senna-S 8.6-50 mg Tablet] 2 each PO DAILY PRN #30 tablet 11/04/23 [Rx] Follow up Appointment(s)/Referral(s): [facility] [NON-STAFF] - 1 Week (Call [facility] when you get home and they will deliver your CPM) [facility], [NON-STAFF] - 1 Week ([facility] will call you to emelyn irvin) Jim Ramos PAC [PHYSICIAN AUTOMATIC SPINNING LATHE OPERATOR] - 11/18/23 10:50 am Activity/Diet/Wound Care/Special Instructions: Orthopedic Discharge Instructions: 1. Wound care and infection precautions, keep incision dry and covered while showering, no lotions, creams, moisturizers. No soaking, pools, hot tubs. Do not scrub over incision. 2. Weight-bear as tolerated with walker / cane until follow-up. 3. Ice and elevate when necessary. Do not exceed 20 minutes per hour with ice pack. 4. Utilize compression sleeve until seen at first follow up appointment. 5. Pain meds and anticoagulants per prescription. 6. Pain medication has potential to cause constipation. Increase oral fluid and fiber intake. Contact primary care provider if you have not had a bowel movement within 48 hours after discharge. 7. No anti-inflammatory medication until discussed at first post operative visit, this including Motrin, Aleve, Mobic, Diclofenac. 8. Follow up in office at 2 weeks postop with Av Ramos PA-C/Bal Akbar PA-C 9. Follow up with your primary care doctor 7-10 days after discharge. 10. Contact [facility] with any questions, . Wound care instructions: 1. Okay to remove surgical dressing as of 11/10/2023 2. Okay to shower directly over the incision after removal of dressing Discharge Disposition: HOME WITH HOME HEALTH SERVICES
[2023-11-04] MEDS: MULTIVITAMINS, THERA 1 EACH TAB PO SCH (13:07)
--- NOTE | 2023-11-04 14:46 | P.CONS ---
History of Present Illness - Reason for Consult Consult date: 11/04/23 - History of Present Illness This is a pleasant 63-year-old female with medical history significant for atrial fibrillation anticoagulated with Eliquis, hypertension, smoker. Patient presents for a planned left knee arthroplasty secondary to osteoarthritis. She is seen today in follow-up postoperative day #1 she continues to report pain about 4 out of 10 to the left knee which is improved by oral pain medication. She has been up ambulating with physical therapy and is scheduled to discharge home today. She has no complaints of chest pain or shortness of breath no nausea vomiting or diarrhea. She is not having gas or had a bowel movement since surgery but she does have normoactive bowel sounds and has been tolerating diet. Patient was started on Lovenox DVT prophylaxis postoperatively and she will be resumed on her home medication of Eliquis later this evening on discharge. Blood cell count is 12.8 which is expected postoperatively. Patient is encouraged to continue with incentive spirometry 10 times an hour on discharge. Hemodynamically she is stable she is on room air she is afebrile. REVIEW OF SYSTEMS: CONSTITUTIONAL: No fever, no malaise, no fatigue. HEENT: No recent visual problems or hearing problems. Denied any sore throat. CARDIOVASCULAR: No chest pain, orthopnea, PND, no palpitations, no syncope. PULMONARY: No shortness of breath, no cough, no hemoptysis. GASTROINTESTINAL: No diarrhea, no nausea, no vomiting, no abdominal pain. NEUROLOGICAL: No headaches, no weakness, no numbness. HEMATOLOGICAL: Denies any bleeding or petechiae. GENITOURINARY: Denies any burning micturition, frequency, or urgency. MUSCULOSKELETAL/RHEUMATOLOGICAL: Denies any joint pain, swelling, or any muscle pain. ENDOCRINE: Denies any polyuria or polydipsia. The rest of the 14-point review of systems is negative. PHYSICAL EXAMINATION: GENERAL: The patient is alert and oriented x3, not in any acute distress. Well developed, well nourished. HEENT: Pupils are round and equally reacting to light. EOMI. No scleral icterus. No conjunctival pallor. Normocephalic, atraumatic. No pharyngeal erythema. No thyromegaly. CARDIOVASCULAR: S1 and S2 present. No murmurs, rubs, or gallops. PULMONARY: Chest is clear to auscultation, no wheezing or crackles. ABDOMEN: Soft, nontender, nondistended, normoactive bowel sounds. No palpable organomegaly. MUSCULOSKELETAL: No joint swelling or deformity. Post operative left knee with mild swelling no erythema positive pulses. EXTREMITIES: No cyanosis, clubbing, or pedal edema. NEUROLOGICAL: Gross neurological examination did not reveal any focal deficits. SKIN: No rashes. Assessment and plan Osteoarthritis postoperative day # 1 total left knee arthroplasty while inpatient DVT prophylaxis and pain management as per surgery History of paroxysmal atrial fibrillation currently in normal sinus rhythm patient is anticoagulated on Eliquis which will be continued on discharge History of hypertension patient continued on metoprolol and valsartan Anxiety/depression not a current issue continued on home medication of sertraline Leukocytosis reactive to surgery no infectious process suspected and patient is recommended to continue with incentive spirometer 10 times an hour to avoid any postoperative atelectasis GI prophylaxis DVT prophylaxis as per primary, resume eliquis when cleared by surgery Full Code Thank you kindly for this consultation. Medically patient is stable for discharge home. Recommend to continue all same home medications. The impression and plan of care has been dictated by Diane Patel Nurse Practitioner as directed. Dr. Dimple MD I have performed a history and physical examination and medical decision making of this patient, discussed the same with the dictator, and agree with the dictators assessment and plan as written, documented as a scribe. Based on total visit time, I have performed more than 50% of this visit. Past Medical History Past Medical History: Atrial Fibrillation, Cancer, Hearing Disorder / Deafness, Hyperlipidemia, Hypertension, Musculoskeletal Disorder, Thyroid Disorder Additional Past Medical History / Comment(s): MIGRAINES, DDD, HX OF LEFT BREAST CANCER(2000 WITH SURGERY AND TAMOXIFEN). HX FRACTURE OF T-11. THYROID NODULE. URINARY STRESS INCONTINENCE. Heart valve prolapse. Enlarged right kidney. History of Any Multi-Drug Resistant Organisms: None Reported Past Surgical History: Breast Surgery, Cardiac Ablation, Section, Orthopedic Surgery Additional Past Surgical History / Comment(s): BREAST LUMPECTOMY X2, RIGHT JUSTUS ST DUCT REMOVED, GANGLION CYST REMOVED, SECTION X2, COLONOSCOPY, cardiac ablation X2, radio frequency pain injections, left knee meniscus repair. Past Anesthesia/Blood Transfusion Reactions: No Reported Reaction Past Psychological History: No Psychological Hx Reported Additional Psychological History / Comment(s): USES SERTRALINE FOR HOT FLASHES. Smoking Status: Former smoker Past Alcohol Use History: None Reported Additional Past Alcohol Use History / Comment(s): QUIT SMOKING AT AGE 25, SMOKED FOR 6 YEARS, 1 PPD. Past Drug Use History: Marijuana Additional Drug Use History / Comment(s): Marijuana Gummies. Aware no use 24 hrs prior to procedure. - Past Family History Mother Family Medical History: Cancer Additional Family Medical History / Comment(s): BREAST CANCER. Father Family Medical History: Cancer Additional Family Medical History / Comment(s): POLYCYTHEMIA. Brother(s) Family Medical History: Blood Disorder, Cancer Additional Family Medical History / Comment(s): COLON POLYP CANCER, ITP. Sister(s) Family Medical History: Cancer, Deep Vein Thrombosis (DVT), Pulmonary Embolus Additional Family Medical History / Comment(s): 2 SISTERS WITH UTERINE CANCER. Medications and Allergies Home Medications Medication Instructions Recorded Confirmed Type Cholecalciferol [Vitamin D3 (25 1,000 unit PO DAILY 12/22/17 10/28/23 History Mcg = 1000 Iu)] Levothyroxine Sodium [Synthroid] 50 mcg PO QAM 12/22/17 10/28/23 History Metoprolol Succinate [Toprol XL] 12.5 mg PO QAM 12/22/17 10/28/23 History Apixaban [Eliquis] 5 mg PO BID 06/30/19 10/28/23 History Sertraline [Zoloft] 50 mg PO QAM 06/30/19 10/28/23 History Ascorbic Acid [Vitamin C] 1,000 mg PO DAILY 10/16/21 10/28/23 History Multivit with Calcium,Iron,Min 1 each PO DAILY 10/16/21 10/28/23 History [Women's Multivitamin] Valsartan 160 mg PO QAM 10/16/21 10/28/23 History HYDROcodone/APAP 7.5-325MG [[place] 1 each PO Q4HR PRN #42 tab 11/04/23 Rx 7.5] Sennosides/Docusate Sodium 2 each PO DAILY PRN #30 tablet 11/04/23 Rx [Senna-S 8.6-50 mg Tablet] Allergies Allergy/AdvReac Type Severity Reaction Status Date / Time lorazepam [From Ativan] AdvReac Severe DOES NOT Verified 11/03/23 09:43 REMEMBER ANYTHING FOR A COUPLE HOURS. Physical Exam Vitals: Vital Signs Temp Pulse Pulse Pulse Resp BP BP 11/04/23 07:22 98.8 F 83 17 145/77 11/04/23 01:35 98.7 F 70 16 144/83 11/03/23 20:00 98.0 F 77 18 167/84 11/03/23 17:45 97.7 F 72 18 162/85 11/03/23 16:45 67 16 165/85 11/03/23 16:24 68 16 172/83 11/03/23 16:09 66 16 172/88 11/03/23 15:54 65 16 158/77 11/03/23 15:40 65 16 162/77 11/03/23 15:25 65 16 153/67 11/03/23 15:09 68 16 154/71 11/03/23 14:54 68 16 169/81 11/03/23 14:39 78 16 167/76 11/03/23 14:24 79 16 167/87 11/03/23 14:09 96.9 F L 87 14 169/81 11/03/23 10:40 63 16 148/75 11/03/23 10:00 97.1 F L 61 16 149/76 Pulse Ox 11/04/23 07:22 90 L 11/04/23 01:35 96 11/03/23 20:00 95 11/03/23 17:45 96 11/03/23 16:45 93 L 11/03/23 16:24 93 L 11/03/23 16:09 92 L 11/03/23 15:54 95 11/03/23 15:40 96 11/03/23 15:25 97 11/03/23 15:09 92 L 11/03/23 14:54 94 L 11/03/23 14:39 93 L 11/03/23 14:24 99 11/03/23 14:09 100 11/03/23 10:40 99 11/03/23 10:00 96 Intake and Output 11/03/23 11/04/23 11/04/23 22:59 06:59 14:59 Intake Total 540 Output Total 300 Balance -300 540 Intake: Oral 540 Output: Urine 300 Other: Voiding Method Toilet # Voids 1 1 Weight 95.2 kg Results CBC & Chem 7: 11/04/23 05:27 Labs: Abnormal Lab Results - Last 24 Hours (Table) 11/04/23 Range/Units 05:27 WBC 12.18 H (4.50-10.00) X 10*3/uL MCHC 31.6 L (32.0-37.0) g/dL Immature Gran # 0.06 H (0.00-0.04) X 10*3/uL Neutrophils # 8.70 H (1.80-7.70) X 10*3/uL Monocytes # 1.16 H (0.20-1.00) X 10*3/uL Eosinophils # 0.02 L (0.04-0.35) X 10*3/uL Assessment and Plan Time with Patient: Less than 30
== END 2023-11-04 13:45 | disposition home health service (06) ==
LOC: OR 09:12 → 4SSUR 16:26 → OR 11-04 13:45
PROVIDERS: ATTEND Orthopaedic Surgery
DX: M17.12 Unilateral primary osteoarthritis, left knee (principal); G89.18 Other acute postprocedural pain; I10 Essential (primary) hypertension; I25.10 Atherosclerotic heart disease of native coronary artery without angina pectoris; E03.9 Hypothyroidism, unspecified; Z79.01 Long term (current) use of anticoagulants; Z79.899 Other long term (current) drug therapy
CPT/HCPCS: 27447; 97161; 64999; 64448; 85025; 73560; C1776; C1713 ×2; C1751; J2250; J1100; J2175; J0690 ×3; J2405 ×2; J1650; J2795; J1170 ×2

== ENCOUNTER 2024-04-21 09:24 | Day surgery (SDC) | payer OTHER ==
[2024-04-21] MEDS: IV FLUID CONTINUATION 1,000 ML IV ONE (09:59)
[2024-04-21] MEDS ORDERED: LACTATED RINGERS 1,000 ML IV SCH (10:03)
[2024-04-21] MEDS ORDERED: LIDOCAINE 1% (10MG/ML) FOR IV START INTRADERMA PRN (10:03)
[2024-04-21 10:04] VITALS: TEMP 98.4
[2024-04-21] MEDS: LACTATED RINGERS 1,000 ML BAG IV STA (10:04)
[2024-04-21] MEDS ORDERED: PROPOFOL 10 MG/ML 20 ML VIAL IV ONE (10:11)
[2024-04-21] MEDS ORDERED: LIDOCAINE 1% INJ 10MG/ML (20 ML MDV) ONE (10:11)
--- NOTE | 2024-04-21 10:26 | P.PCN ---
Date of Procedure: 04/21/24 Procedure(s) Performed: BRIEF HISTORY: Patient is a 64-year-old pleasant white female scheduled for an elective colonoscopy as a part of evaluation of prior history of colon polyps. Last colonoscopy was 6 years ago. PROCEDURE PERFORMED: Colonoscopy. PREOPERATIVE DIAGNOSIS: History of colon polyps. IV sedation per Anesthesia. PROCEDURE: After informed consent was obtained, the patient, was brought into the endoscopy unit. IV sedation was administered by Anesthesia under continuous monitoring. Digital rectal examination was normal. Initially the Olympus CF-160 flexible video colonoscope was then inserted in the rectum, gradually advanced into the cecum without any difficulty. Careful examination was performed as the scope was gradually being withdrawn. Ileocecal valve and the appendiceal orifice were visualized and appeared normal. Prep was excellent. Mucosa of the cecum, ascending colon, transverse colon, descending colon, sigmoid colon, and rectum appeared normal. Scattered sigmoid diverticulosis. Retroflexion was performed in the rectum and no lesions were seen. The patient tolerated the procedure well. IMPRESSION: Normal-appearing colon from rectum to cecum with no evidence of colorectal neoplasia Scattered sigmoid diverticulosis. RECOMMENDATIONS: Findings of this examination were discussed with the patient as well as her family. She was advised to have repeat screening colonoscopy in 10 years..
[2024-04-21 10:36] VITALS: BP 128/71
[2024-04-21 10:49] VITALS: PULSE 60; RESP 15
== END 2024-04-21 10:58 ==
LOC: ORWHC2ENDO 09:24
PROVIDERS: ATTEND Internal Medicine Gastroenterology
DX: Z12.11 Encounter for screening for malignant neoplasm of colon (principal); K57.30 Diverticulosis of large intestine without perforation or abscess without bleeding; I10 Essential (primary) hypertension; E78.5 Hyperlipidemia, unspecified; I48.91 Unspecified atrial fibrillation; E07.9 Disorder of thyroid, unspecified; F32.A Depression, unspecified; Z85.3 Personal history of malignant neoplasm of breast; Z79.890 Hormone replacement therapy; Z79.899 Other long term (current) drug therapy; Z98.890 Other specified postprocedural states; Z86.010 Personal history of colon polyps
CPT/HCPCS: 45378